=== PATIENT | male | born 1955 | race Caucasian/White ===

== ENCOUNTER 2024-11-16 16:57 | Emergency (ER) | payer OTHER, SELFPAY ==
[2024-11-16] VITALS (20 sets, daily range): BP systolic 122–168; BP diastolic 73–81; PULSE 64–92; TEMP 36.4; O2SAT 91–99; BMI 40.4
--- NOTE | 2024-11-16 17:09 | CT_ITS ---
The [address] [address] Patient Name: DENNIS HANEY MRN: [id number] date: 1955 Sex: M Assigned Patient Location: ER Current Patient Location: ER Accession/Order Number: [id number] Exam Date: 11/16/2024 17:15 Report Date: 11/16/2024 17:56 At the request of: XOCHILT HAGAN DO Procedure: CT stroke head/brain wo con CT BRAIN WITHOUT CONTRAST: CLINICAL HISTORY: r/o CVA, dysarthria, dysmetria COMPARISON: None TECHNIQUE: Contiguous axial unenhanced images were obtained through the brain. This CT exam was performed using one or more following dose reduction techniques: Automated exposure control, adjustment of the mA and/or kV according to patient size, or use of iterative reconstruction technique. FINDINGS: Central involutional changes. Remote right lentiform nucleus stroke with resultant encephalomalacia. There is hypoattenuation left frontal lobe extending to the left basal ganglia. Focal increased density left lentiform nucleus worrisome for hemorrhage. This measures 1.8 x 1.3 x 1.5 cm in size. Visualized intraorbital contents appear unremarkable. Visualized paranasal sinuses are clear. The surrounding soft tissues are normal. CT/CT stroke head/brain wo con IMPRESSION: LEFT BASAL GANGLIA HEMORRHAGE, ATTENUATION LIKELY MAY SUGGEST ACUTE SUBACUTE IN AGE. THERE IS HYPOATTENUATION INVOLVING THE LEFT BASAL GANGLIA IS PREDOMINANTLY INVOLVING LENTIFORM NUCLEUS NOTED WHICH MAY RAISE POSSIBILITY FOR A SUBACUTE STROKE WITH SECONDARY PETECHIAL CONVERSION CAUSING THE AFOREMENTIONED HEMORRHAGE.. MRI MAY BE BENEFICIAL. DISCUSSED WITH A PHYSICIAN OVER TELEPHONE 1725 HOURS 11/16/2024 Impression dictated by: Gary Bunn M.D. 11/16/2024 5:56 PM Dictation Location: [place] [address] Electronically authenticated by: [id number] Y Date: 11/16/2024 17:56
--- NOTE | 2024-11-16 17:09 | CT_ITS ---
[address] [address] Patient Name: DENNIS HANEY MRN: [id number] date: 1955 Sex: M Assigned Patient Location: ER Current Patient Location: .[facility] Accession/Order Number: [id number] Exam Date: 11/16/2024 17:24 Report Date: 11/16/2024 18:12 At the request of: XOCHILT HAGAN DO Procedure: CT angio neck CT ANGIOGRAPHY OF HEAD AND NECK WITH CONTRAST CLINICAL HISTORY: r/o CVA, dysarthria, dysmetria COMPARISON: None TECHNIQUE: CT angiogram images through the head and neck with coronal sagittal reformats. Evaluation degree of ICA narrowing was performed utilizing NASCET criteria. 3-D reconstructions of the cervical vasculature were performed.. This CT exam was performed using one or more following dose reduction techniques: Automated exposure control, adjustment of the mA and/or kV according to patient size, or use of iterative reconstruction technique. FINDINGS: FINDINGS: Bovine arch. Great vessels are patent. Carotid arteries patent. Vertebral arteries are patent. Intracranial ICAs are patent. ACAs and MCAs are patent. Vertebral arteries, basilar artery basilar tip, basilar bifurcation patent. Posterior cerebral arteries, superior cerebellar arteries and picas are patent. No aneurysm. No dural venous sinus thrombosis. Lung apices are clear. Degenerative changes of the cervical spine. CT/CT angio head IMPRESSION: Negative for large vessel occlusion Impression dictated by: Gary Bunn M.D. 11/16/2024 6:12 PM Dictation Location: [place] [address] Electronically authenticated by: [id number] Y Date: 11/16/2024 18:12
--- NOTE | 2024-11-16 17:09 | CT_ITS ---
[address] [address] Patient Name: DENNIS HANEY MRN: [id number] date: 1955 Sex: M Assigned Patient Location: ER Current Patient Location: .[facility] Accession/Order Number: [id number] Exam Date: 11/16/2024 17:24 Report Date: 11/16/2024 18:12 At the request of: XOCHILT HAGAN DO Procedure: CT angio neck CT ANGIOGRAPHY OF HEAD AND NECK WITH CONTRAST CLINICAL HISTORY: r/o CVA, dysarthria, dysmetria COMPARISON: None TECHNIQUE: CT angiogram images through the head and neck with coronal sagittal reformats. Evaluation degree of ICA narrowing was performed utilizing NASCET criteria. 3-D reconstructions of the cervical vasculature were performed.. This CT exam was performed using one or more following dose reduction techniques: Automated exposure control, adjustment of the mA and/or kV according to patient size, or use of iterative reconstruction technique. FINDINGS: FINDINGS: Bovine arch. Great vessels are patent. Carotid arteries patent. Vertebral arteries are patent. Intracranial ICAs are patent. ACAs and MCAs are patent. Vertebral arteries, basilar artery basilar tip, basilar bifurcation patent. Posterior cerebral arteries, superior cerebellar arteries and picas are patent. No aneurysm. No dural venous sinus thrombosis. Lung apices are clear. Degenerative changes of the cervical spine. CT/CT angio neck IMPRESSION: Negative for large vessel occlusion Impression dictated by: Gary Bunn M.D. 11/16/2024 6:12 PM Dictation Location: [place] [address] Electronically authenticated by: [id number] Y Date: 11/16/2024 18:12
--- NOTE | 2024-11-16 17:09 | XR_ITS ---
The [address] [address] Patient Name: DENNIS HANEY MRN: [id number] date: 1955 Sex: M Assigned Patient Location: ER Current Patient Location: ER Accession/Order Number: [id number] Exam Date: 11/16/2024 17:42 Report Date: 11/16/2024 18:06 At the request of: XOCHILT HAGAN DO Procedure: XR chest 1V PA CHEST: CLINICAL HISTORY: CP COMPARISON: None Unremarkable cardiomediastinal. Lungs clear. No effusion or pneumothorax. XR/XR chest 1V IMPRESSION: Negative acute pleural-parenchymal disease. Impression dictated by: Gary Bunn M.D. 11/16/2024 6:06 PM Dictation Location: [place] [address] Electronically authenticated by: [id number] Y Date: 11/16/2024 18:06
--- NOTE | 2024-11-16 17:10 | ECG_ITS ---
The [facility] Test Date: 2024-11-16 Pat Name: DENNIS HANEY Department: Room: - Gender: Male Head Of Business Development: : 1955 Requested By: [id number] Order Number: [id number] [place] MD: EDGAR RITCHIE M.D. Measurements Intervals [place] Rate: 91 P: 90 [place]: 172 QRS: 90 QRSD: 94 T: 231 QT: 322 QTc: 371 Interpretive Statements 1100 Sinus rhythm 4564 Twave abnormality, possible lateral ischemia 9150 abnormal ECG Compared to ECG 12/27/2019 10:00:08 Possible ischemia now present Electronically Signed On 11-16-2024 17:40:01 EDT by EDGAR RITCHIE M.D.
--- NOTE | 2024-11-16 17:26 | ED.GENADUL1 ---
HPI HPI - General Adult General Chief complaint: Fall Stated complaint: FALL Time Seen by Provider: 11/16/24 17:02 Source: patient Source information: EMS and patient. Mode of arrival: ambulance Limitations: other Limitations comment: speech slurred hx of strokes History of Present Illness HPI narrative: Patient is a 69-year-old male presenting to the emergency department via EMS after being found down in his house. According to EMS providers, the patient lives alone. He called EMS himself, and was found by providers wedged between the bed on top of a pile of his medications. The patient reportedly has a history of 3 prior strokes, but unknown what his residual deficits are. They are unsure of his last known well. EMS states that he was wobbly and had an uncoordinated gait when they tried to get him to walk. The patient mumbles when he speaks and is having a hard time providing a history. He does not seem to be in any pain and says no to all my review of system questions. He denies headache, neck pain, chest pain, shortness of breath, abdominal pain, nausea, vomiting, visual changes, numbness/tingling, weakness, or any other symptoms. Related Data Home Medications ?Medication ?Instructions ?Recorded ?Confirmed atorvastatin 10 mg tablet 10 mg PO .QD 11/16/24 11/16/24 clonazepam 0.5 mg tablet 0.5 mg PO BID PRN anxiety 11/16/24 11/16/24 felbamate 600 mg tablet 1,200 mg PO QID 11/16/24 11/16/24 meloxicam 7.5 mg tablet 7.5 mg PO .QD 11/16/24 11/16/24 zonisamide 100 mg capsule 100 mg PO Q12H 11/16/24 11/16/24 Allergies Allergy/AdvReac Type Severity Reaction Status Date / Time No Known Drug Allergies Allergy Verified 11/16/24 17:09 Review of Systems ROS Status of ROS 10 or more systems reviewed and unremarkable except as noted in history and below Exam Narrative Exam Narrative: CONSTITUTIONAL: In no acute distress, awake and alert, answering questions and following commands appropriately SKIN: Was warm and dry. He has impressions of pill bottles in the skin of his back. No pressure ulcers. EYES: Sclerae white. EARS, NOSE, THROAT: Dry mucous membranes. No tongue lacerations. RESPIRATORY: Clear to auscultation bilaterally, no wheezes, crackles, or stridor, no use of accessory muscles CARDIOVASCULAR: Normal rate and regular rhythm. There is no S3, S4, murmur, rub. 2+ radial pulses bilaterally. GASTROINTESTINAL: Abdomen soft, nontender, nondistended. No rebound tenderness or guarding. MUSCULOSKELETAL: No peripheral edema. No C-spine tenderness. NEUROLOGIC: NIHSS: 4 - Patient is alert and oriented to person place and time with severe dysarthria. Sensation: sensation to light touch is intact bilaterally in upper and lower extremities. Motor: Good muscle tone. Strength is 5/5 bilaterally in the upper and lower extremities. Cerebellar: Dysmetria with abnormal finger to nose testing. Gait testing deferred. Cranial Nerves: Pupils are round, reactive to light and accommodation. Extraocular movements are intact without ptosis. No nystagmus. Facial sensation intact bilaterally to light touch in the V1, V2, V3 distribution. Facial muscle strength is normal and equal bilaterally. Hearing is normal bilaterally. Palate and uvula elevate symmetrically. Shoulder shrug strong and equal bilaterally. Tongue protrudes midline and moves symmetrically. Constitutional Vital Signs, click to edit/add: Last Vital Signs Temp 97.5 F L 11/16/24 17:00 Pulse 67 11/16/24 18:40 Resp 10 L 11/16/24 18:40 BP 167/76 H 11/16/24 18:30 Pulse Ox 98 11/16/24 18:40 O2 Del Method Room Air 11/16/24 17:00 Course Vital Signs Vital signs: Vital Signs Temperature 97.5 F L 11/16/24 17:00 Pulse Rate 90 11/16/24 17:00 Respiratory Rate 20 11/16/24 17:00 Blood Pressure 122/80 11/16/24 17:00 Pulse Oximetry 98 11/16/24 17:00 Oxygen Delivery Method Room Air 11/16/24 17:00 Temperature 97.5 F L 11/16/24 17:00 Pulse Rate 67 11/16/24 18:40 Respiratory Rate 10 L 11/16/24 18:40 Blood Pressure 167/76 H 11/16/24 18:30 Pulse Oximetry 98 11/16/24 18:40 Oxygen Delivery Method Room Air 11/16/24 17:00 Medical Decision Making MDM Narrative Medical decision making narrative: Patient is a 69-year-old male presenting to the emergency department from home via EMS after being found down in his home. According to EMS providers, the patient was having slurred speech and an uncoordinated gait. He reportedly has a history of 3 prior CVAs with unknown residual deficits. The last known well is unknown. The patient has never been to this hospital before, there is no emergency contact. No family is at the bedside. POC glucose on arrival was within normal limits. His vital signs are within normal limits as well. He is afebrile and hemodynamically stable. NIHSS was calculated to be 4 for severe dysarthria and bilateral limb ataxia. To the best of our knowledge, he is not on anti-coagulation. Stroke pager was immediately activated for concerns of an acute CVA. Given his neurologic symptoms, I am concerned for possible posterior circulation stroke. There is no prior documentation in the EMR for review, and his symptoms may be chronic and related to his 3 prior strokes. Additionally, the patient was found down after an unknown period of time. Therefore, I did consider rhabdomyolysis. Other potential etiology include metabolic encephalopathy from underlying infection such as UTI, pneumonia, ACS, arrhythmia, uremia, or other electrolyte/metabolic derangement. IV was established and broad workup was obtained. He was given [address] bol[address] saline. [address] head independently reviewed/interpreted by myself and radiology demonstrated acute vs subacute left basal ganglia hemorrhagic CVA. CTA angio of the head/neck demonstrated no LVO. Reason for no thrombolytics: unknown last known well, hemorrhagic conversion After the STAT CT head was obtained, I discussed the patient with aviation boatswain's mate tele-stroke neurologist from Dr. Tena Cleaning. He reviewed the CT head and interpreted the images as a subacute ischemic stroke with hemorrhagic conversion. He has less suspicion for primary intraparenchymal hemorrhage and recommends keeping the patient within [facility]'s - no transfer required. He did not recommend thrombolytics or DAPT. Recommends MRI or repeat CT in 6 hours and SBP goal of < 160mmHg. 12 Lead EKG: Normal sinus rhythm at a rate of 91. Normal axis. No ST segment elevations. There are subtle ST segment depressions and T wave inversions in the lateral leads. QRS, WA, and QTc interval within normal limits. No prior EKG for comparison. Final impression: normal sinus rhythm with non-specific T wave abnormalities. No evidence of STEMI. Laboratory studies were overall unremarkable, no prior labs for comparison. Mild anemia and mild thrombocytopenia. No leukocytosis. Normal coagulation profile. No electrolyte derangements. He is uremic with a BUN of 46, and a normal creatinine. Mild transaminitis and mild elevated alk phos. No elevated ammonia. CPK normal. Troponin nonelevated. Negative alcohol level. Mild hyperglycemia. Chest x-ray independently reviewed/interpreted by myself demonstrated no acute cardiopulmonary process. I discussed the patient with on-call neurologist at [facility], Dr. Light, who accepted the transfer with no further recommendations at this time. I discussed the patient with hospitalist, Dr. Sozua, at [facility] who accepted the patient to his service. At the end of my shift, his neurologic exam remains unchanged with no worsening deficits. GCS 15. His blood pressure is 167/76, this should be repeated and treated if it remains persistently elevated over 160mmHg systolic. 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 DISPOSITION: Transferred to [facility] CONDITION: Serious Medical Records Medical records reviewed: Yes I reviewed the patient's medical records Lab Data Lab results reviewed: Yes I reviewed the patient's lab results Labs: Lab Results 11/16/24 11/16/24 Range/Units 17:25 17:40 WBC 5.8 (4.0-11.0) 10^3/uL RBC 4.06 L (4.70-6.10) 10^6/uL Hgb 13.2 L (14.0-18.0) g/dL Hct 37.2 L (42.0-54.0) % MCV 91.6 (80.0-94.0) fL MCH 32.5 (25.9-34.0) pg MCHC 35.5 H (29.9-35.2) g/dL RDW 13.2 (11.0-15.0) % Plt Count 128 L (150-450) 10^3/uL MPV 10.9 (9.5-13.5) fL Neut % (Auto) 80.0 H (43.0-75.0) % Lymph % (Auto) 12.7 L (20.5-60.0) % [place] % (Auto) 4.8 (1.7-12.0) % Eos % (Auto) 1.9 (0.9-7.0) % Baso % (Auto) 0.3 (0.2-2.0) % Neut # (Auto) 4.7 (1.4-6.5) 10^3/uL Lymph # (Auto) 0.7 L (1.2-3.8) 10^3/uL [place] # (Auto) 0.3 (0.3-0.8) 10^3/uL Eos # (Auto) 0.1 (0.0-0.7) 10^3/uL Baso # (Auto) 0.0 (0.0-0.1) 10^3/uL Abs Immat Gran (auto) 0.02 (0.00-0.03) 10^3/uL Imm/Tot Granulo (auto) 0.3 (0.0-0.5) % PT 11.1 (9.0-11.6) sec INR 1.05 APTT 27.7 (22.3-36.2) sec Sodium 143 (136-145) mmol/L Potassium 3.9 (3.5-5.1) mmol/L Chloride 104 (98-107) mmol/L Carbon Dioxide 28.1 (21.0-32.0) mmol/L Anion Gap 14.8 BUN 46.0 H (7.0-18.0) mg/dL Creatinine 1.10 (0.70-1.30) mg/dL Est GFR ( Amer) >60 (>=60 mL/min/1.73m^2) Est GFR (Non-Af Amer) >60 (>=60 mL/min/1.73m^2) BUN/Creatinine Ratio 41.8 Glucose 182 H (74-106) mg/dL Lactate 1.5 (0.4-2.0) mmol/L Calcium 9.5 (8.5-10.1) mg/dL Total Bilirubin 0.3 (0.2-1.0) mg/dL AST 48 H (15-37) U/L ALT 38 (16-63) U/L Alkaline Phosphatase 175 H (46-116) U/L Ammonia 21 (11-32) umol/L Total Creatine Kinase 187 (39-308) U/L Troponin I High Sens 13.3 (4.0-76.1) pg/mL Total Protein 8.0 (6.4-8.2) g/dL Albumin 4.2 (3.4-5.0) g/dL Globulin 3.8 g/dL Albumin/Globulin Ratio 1.1 Ethanol Quant <3 mg/dL POC Glucose 172 H (74-106) mg/dL Imaging Data CT scan - head: Attestation: I personally reviewed and interpreted this imaging study as follows: Radiologist's impression: ITS Impressions Brain CT 11/16/24 17:09 IMPRESSION: LEFT BASAL GANGLIA HEMORRHAGE, ATTENUATION LIKELY MAY SUGGEST ACUTE SUBACUTE IN AGE. THERE IS HYPOATTENUATION INVOLVING THE LEFT BASAL GANGLIA IS PREDOMINANTLY INVOLVING LENTIFORM NUCLEUS NOTED WHICH MAY RAISE POSSIBILITY FOR A SUBACUTE STROKE WITH SECONDARY PETECHIAL CONVERSION CAUSING THE AFOREMENTIONED HEMORRHAGE.. MRI MAY BE BENEFICIAL. DISCUSSED WITH A PHYSICIAN OVER TELEPHONE 1725 HOURS 11/16/2024 Impression dictated by: Gary Bunn M.D. 11/16/2024 5:56 PM Dictation Location: [facility] Electronically authenticated by: [id number] Y Date: 11/16/2024 17:56 Chest X-Ray 11/16/24 17:09 IMPRESSION: Negative acute pleural-parenchymal disease. Impression dictated by: Gary Bunn M.D. 11/16/2024 6:06 PM Dictation Location: [facility] Electronically authenticated by: [id number] Y Date: 11/16/2024 18:06 Head CTA 11/16/24 17:09 IMPRESSION: Negative for large vessel occlusion Impression dictated by: Gary Bunn M.D. 11/16/2024 6:12 PM Dictation Location: [facility] Electronically authenticated by: [id number] Y Date: 11/16/2024 18:12 Neck CTA 11/16/24 17:09 IMPRESSION: Negative for large vessel occlusion Impression dictated by: Gary Bunn M.D. 11/16/2024 6:12 PM Dictation Location: [facility] Electronically authenticated by: [id number] Y Date: 11/16/2024 18:12 ECG Data Attestation: I personally reviewed and interpreted this ECG as follows: Critical Care Time Critical Care Time Critical Care Time: Yes Total Critical Care Time: 40 Attestation: Due to a high probability of clinically significant, life threatening deterioration, the patient required my highest level of preparedness to intervene emergently and I personally spent this critical care time directly and personally managing the patient. This critical care time included obtaining a history; examining the patient; pulse oximetry; ordering and review of studies; arranging urgent treatment with development of a management plan; evaluation of patient's response to treatment; frequent reassessment; and, discussions with other providers. This critical care time was performed to assess and manage the high probability of imminent, life-threatening deterioration that could result in multi-organ failure. It was exclusive of separately billable procedures and treating other patients and teaching time. Discharge Plan Discharge Chief Complaint: Fall Clinical Impression: Basal ganglia stroke Patient Disposition: [facility] Time of Disposition Decision: 19:02 Discharge Location: [facility] Condition: Serious Mode of Transportation: EMS
[2024-11-16] MEDS: 0.9 % SODIUM CHLORIDE 1,000 ML 1000 ML IV (17:41)
[2024-11-16 17:57] LABS: Hematocrit 37.2 % (42.0-54.0); Hemoglobin 13.2 g/dL (14.0-18.0); Immature Granulocytes Abs Auto 0.02 10^3/uL (0.00-0.03); Immature Granulocytes Pct Auto 0.3 % (0.0-0.5); Lymphocytes Absolute Auto 0.7 10^3/uL (1.2-3.8); Mean Corpuscular HGB Conc 35.5 g/dL (29.9-35.2); Mean Corpuscular Hemoglobin 32.5 pg (25.9-34.0); Mean Corpuscular Volume 91.6 fL (80.0-94.0); Platelet Count 128 10^3/uL (150-450); Red Blood Count 4.06 10^6/uL (4.70-6.10); White Blood Count 5.8 10^3/uL (4.0-11.0)
[2024-11-16 17:58] LABS: Ammonia 21 umol/L (11-32)
[2024-11-16 18:01] LABS: INR 1.05; Partial Thromboplastin Time 27.7 sec (22.3-36.2); Prothrombin Time 11.1 sec (9.0-11.6)
[2024-11-16 18:02] LABS: Creatine Kinase 187 U/L (39-308)
[2024-11-16 18:04] LABS: Alanine Aminotransferase 38 U/L (16-63); Albumin Globulin Ratio 1.1; Albumin Level 4.2 g/dL (3.4-5.0); Alkaline Phosphatase 175 U/L (46-116); Anion Gap 14.8; Aspartate Amino Transferase 48 U/L (15-37); Blood Urea Nitrogen 46.0 mg/dL (7.0-18.0); Calcium 9.5 mg/dL (8.5-10.1); Carbon Dioxide 28.1 mmol/L (21.0-32.0); Chloride 104 mmol/L (98-107); Estimated GFR (African America >60 (>=60 mL/min/1.73m^2); Estimated GFR (Non-African Ame >60 (>=60 mL/min/1.73m^2); Globulin 3.8 g/dL; Glucose 182 mg/dL (74-106); Potassium 3.9 mmol/L (3.5-5.1); Sodium 143 mmol/L (136-145); Total Protein 8.0 g/dL (6.4-8.2)
[2024-11-16 18:10] LABS: Lactate/Lactic Acid 1.5 mmol/L (0.4-2.0)
--- NOTE | 2024-11-16 18:12 | PC.NURSE ---
0651 Talking with stroke nurse for tele stroke. took phone on phone with neurologist.
--- NOTE | 2024-11-16 18:16 | PC.NURSE ---
Patient has no family or contact information. HX of 3strokes in past. Unsure of deficits from previous stroke. Difficult to under stand speech is slurred. Left side uncoordinated when doing finger to nose. Follows commands when asked.
--- NOTE | 2024-11-16 19:10 | PC.NURSE ---
i walked into this patient' room to find this patient awake and alert sitting upright on the bed. i introduced myself to this patient and i told him that he was accepted to [facility] but now waiting a room number. once we get that room number at [facility] then we will call for transportation for to take you to [facility] this patient voices no concerns or needs and shows no signs of distress
--- NOTE | 2024-11-16 19:35 | PC.NURSE ---
patient sitting upright on the bed resting with his eyes closed
--- NOTE | 2024-11-16 20:00 | PC.NURSE ---
this patient awake and alert sitting upright on the bed, i informed this patient still don't have a room number at [facility] yet. this patient voices ok this patient voices no other concerns, needs and shows no signs of distress
--- NOTE | 2024-11-16 21:24 | PC.NURSE ---
this patient awake and alert sitting upright on the bed. i informed this patient that you have a room now at [facility] and eat for transportation will in 2 hours. but we are call around to see if we can find someone that would be able to come sooner. this patient said ok
--- NOTE | 2024-11-16 22:02 | PC.NURSE ---
this patient asked of i could call his sister Barbara([phone]), who lives in [place]
--- NOTE | 2024-11-16 22:10 | PC.NURSE ---
i informed this patient that the phone number given [phone] your sister Barbara, it rang busy. I will continue to try this number,this patient said she will call back most likely, once she see the phone number
--- NOTE | 2024-11-16 22:35 | PC.NURSE ---
this patient sitting upright on the bed awake and alert
--- NOTE | 2024-11-16 23:18 | PC.NURSE ---
ii called patient report to [facility] [phone] and spoke with Penny OGDEN
--- NOTE | 2024-11-17 16:15 | SWNOTE1 ---
JIMI received a call from Estelita at [facility] and she is the pillowcase turner. She did ask if pt was at the [facility]. JIMI did advise that pt was here in our ED ON 11/16/24 and he was transferred to [facility]. JIMI provided for continuity of care.
== END 2024-11-16 23:17 | disposition short-term general hospital (02) ==
PROVIDERS: Emergency Provider Student in an Organized Health Care Education/Training Program
DX: I62.9 Nontraumatic intracranial hemorrhage, unspecified (principal); Z86.73 Personal history of transient ischemic attack (TIA), and cerebral infarction without residual deficits; R73.9 Hyperglycemia, unspecified
CPT/HCPCS: 36415; 70450; 70496; 70498; 71045; 80053; 80320; 81001; 82140; 82550; 82948; 83605; 84484; 85025; 85610; 85730; 93005; 99285; Q9967

== ENCOUNTER 2025-01-02 18:15 | Inpatient (IN) | payer OTHER, SELFPAY ==
--- OUTSIDE RECORDS SUMMARY | 2024-12-28 09:00 | XMS_ITS | Encounter Summary ---
Author Organization [facility] Address [address] [facility] [address] [place] [address] Care Team Providers Care Retail Advertising Account Executive Name Role Phone Shala Reynolds MD Primary Care Provider [phone] Reason for Referral * Consultation (Routine) - AuthorizedSpecialtyDiagnoses / ProceduresReferred By ContactReferred To ContactOrthopaedic Surgery Diagnoses Trochanteric bursitis of left hip Sciatica of left side Anthony Sanchez MD [address] [place] [address] Phone: tel: fax: Darin Ashraf MD [facility] Referrals ONLY fax: Referral IDStatusReasonStart DateExpiration DateVisits RequestedVisits [id number] Specialty Services Required / Reason for Visit * ReasonCommentsstrokeMemory Loss Encounter Details DateTypeDepartmentCare Team (Latest Contact Info)Wwbcywwxewe96/20/2025 9:00 AM ESTOffice Visit [facility] [address] [phone] Antohny Sanchez MD [address] [place] [address] Trochanteric bursitis of left hip (Primary Dx); Sciatica of left side Social History Tobacco UseTypesPacks/DayYears UsedDateSmoking Tobacco: NeverSmokeless Tobacco: NeverAlcohol UseStandard Drinks/WeekCommentsNot Currently0 (1 standard drink = 0.6 oz pure alcohol)PHQ-2AnswerDate RecordedPatient Health Questionnaire-2 Score Sex and Gender InformationValueDate RecordedSex Assigned at [facility] 07/18/2022 9:11 AM EDTLegal IuzOqau5404/22/2022 7:26 PM EDTGender IdentityMale 07/18/2022 9:11 AM EDTSexual OrientationNot on filedocumented as of this encounter Last Filed Vital Signs Vital SignReadingTime TakenCommentsBlood Pkofqhnu015/6811 8:58 AM EST Pulse--Temperature--Respiratory Rate--Oxygen Saturation--Inhaled Oxygen Concentration--Ldacsy40.5 kg (124 lb 9.6 oz)12/28/2024 8:58 AM MFPUjlqvd438.9 cm (6')12/28/2024 8:58 AM ESTBody Mass Index16.9102/28/2024 8:58 AM ESTdocumented in this encounter Progress Notes * Anthony Sanchez MD - 12/28/2024 9:00 AM EST Images from the original note were not included. Subjective Moose Plascencia is a 69 y.o. male who presents for stroke and Memory Loss, and left hip pain. History of Present Illness The patient presents for evaluation of stroke, hip pain, and seizures. He experienced a stroke at the end of 11/2024, characterized by an inability to rise from the floornext to his bed, although he could text his neighbor for assistance. He was subsequently admitted to the [facility]. An MRI scan revealed a small bleed in the basal ganglia, but no residual effects from the stroke were observed. He reports no loss of strength since his hospital discharge. Prior to the stroke, he had been experiencing difficulty with mobility due to hip issues. X-rays ofthe hip and pelvis showed ischemic changes. During his stay at [facility], surgical intervention was advised against due to his recent stroke and overall frailty. He has been struggling with physicaltherapy due to his hip condition. He received a cortisone injection at [facility], which provided some relief. He has been walking with a noticeable limp due to his hip condition. He missed an appointment in 2022 due to inclement weather. He is currently undergoing therapy and is able to walk long distances without significant pain. He is considering the use of a scooter for mobility. He had a seizure after missing two doses of Keppra during a rehab transfer, which led to another seizure and subsequent hospitalization at [facility]. His medication regimen was adjusted by Dr. Garcia, including an increase in Zonegran dosage from 100 mg to 150 mg. He has been seizure-free since these adjustments. MEDICATIONS CURRENT MEDS: Zonegran 100 mg, 150 mg Felbamate Antidepressant PREVIOUS MEDS: Keppra Reason for Discontinuation: Seizures due to missed doses Review of Systems Constitutional: Negative for chills, diaphoresis, fatigue and fever. HENT: Negative for ear pain, tinnitus and trouble swallowing. Eyes: Negative for photophobia and visual disturbance. Respiratory: Negative for cough and shortness of breath. Cardiovascular: Negative for palpitations and leg swelling. Gastrointestinal: Negative for abdominal pain and nausea. Genitourinary: Negative for difficulty urinating and urgency. Musculoskeletal: Negative for arthralgias, back pain, myalgias, neck pain and neck stiffness. Neurological: Negative for tremors, weakness, light-headedness and numbness. Psychiatric/Behavioral: Negative for agitation, confusion and suicidal ideas. Objective Blood pressure 134/68, height 6', weight 124 lb 9.6 oz. Physical Exam Motor Examination Strength: Hand strength is normal. Lower limb strength is normal. Gait and Station Gait: Walking pattern is crooked due to hip pain. Musculoskeletal: Pain in the hip. Results Imaging - MRI of the brain: Small bleed in the basal ganglia - X-rays of the hip and pelvis: Ischemic changes Assessment & Plan 1. Cerebrovascular accident (CVA). He experienced a stroke at the end of November and was taken to [facility]. An MRI confirmed a smallbrain bleed in the basal ganglia. He has not shown any residual weakness from the stroke. He is advised to continue his current medication regimen, including the antidepressant, at the same dosage. 2. Hip pain. He has been experiencing hip pain, which has affected his mobility and therapy participation. A cortisone shot previously administered at [facility] provided some relief. A referral to Dr. Guzman fororthopedic evaluation and potential treatment options, including injections, will be made. 3. Seizures. He had a seizure due to missed doses of Keppra during a rehab transfer. His current medication regimen includes Zonegran 100 mg and 150 mg counts, and felbamate. The plan is to continue with the current doses of Zonegran and felbamate. Keppra will be discontinued as it has more side effects compared to Zonegran. Follow-up The patient will follow up in 4 weeks. This clinical note was created utilizing [employer] documentation system. All information has beenthoroughly reviewed, corrected as necessary, and authenticated by the provider to ensure accuracy and completeness. On occasion, [employer] documentation system erroneously drops words or replaces aspoken word with a similar sounding word. Please notify with any questions or concerns regarding this clinical note. documented in this encounter Plan of Treatment DateTypeDepartmentCare Team (Latest Contact Info)Drqjankwjbq66/19/2025 10:20 AM ESTOffice Visit [facility] [address] [facility] [address] [place] [address] Anthony Sanchez MD [address] [facility] [address] [address] NameTypePriorityAssociated DiagnosesOrder ScheduleAmbulatory referral to Orthopaedic SurgeryOutpatient ReferralRoutine Trochanteric bursitis of left hip Sciatica of left side Expected: 12/28/2024 (Approximate), Expires: 06/27/2025documented as of this encounter Visit Diagnoses Diagnosis Trochanteric bursitis of left hip- Primary Sciatica of left side documented in this encounter Additional Health Concerns AssessmentNoted TimePHQ-9 Depression Total Score: 10:00 AM EST documented as of this encounter Care Teams Team MemberRelationshipSpecialtyStart DateEnd Date Shala Reynolds MD [address] [place] [address] PCP - GeneralFamily Medicine06/16/22documented as of this encounter
[2025-01-02] VITALS (29 sets, daily range): BP systolic 134–180; BP diastolic 63–93; PULSE 68–112; TEMP 36.1–36.2; O2SAT 92–99; BMI 23.7; BMI 16.0
--- NOTE | 2025-01-02 18:41 | CT_ITS ---
The [address] [address] Patient Name: DENNIS HANEY MRN: [id number] date: 1955 Sex: M Assigned Patient Location: ED.MAIN Current Patient Location: ED.MAIN Accession/Order Number: [id number] Exam Date: 01/02/2025 19:22 Report Date: 01/02/2025 20:09 At the request of: ELAINA VELAZQUEZ MD Procedure: CT head/brain wo con CT BRAIN WITHOUT CONTRAST: CLINICAL HISTORY: Altered mental status COMPARISON: 11/16/2024 TECHNIQUE: Contiguous axial unenhanced images were obtained through the brain. This CT exam was performed using one or more following dose reduction techniques: Automated exposure control, adjustment of the mA and/or kV according to patient size, or use of iterative reconstruction technique. FINDINGS: There is no evidence of midline shift, intra or extra-axial fluid collection, hemorrhage or CT evidence of acute large vascular distribution stroke. Remote lacunar strokes both basal ganglia regions Visualized intraorbital contents appear unremarkable. Visualized paranasal sinuses are clear. The surrounding soft tissues are normal. CT/CT head/brain wo con IMPRESSION: NO ACUTE INTRACRANIAL ABNORMALITY. Impression dictated by: Gary Bunn M.D. 01/02/2025 8:09 PM Dictation Location: [place] [address] Electronically authenticated by: [id number] Y Date: 01/02/2025 20:09
--- NOTE | 2025-01-02 18:41 | XR_ITS ---
The [address] [address] Patient Name: DENNIS HANEY MRN: [id number] date: 1955 Sex: M Assigned Patient Location: ER Current Patient Location: ED.MAIN Accession/Order Number: [id number] Exam Date: 01/02/2025 19:22 Report Date: 01/02/2025 20:05 At the request of: ELAINA VELAZQUEZ MD Procedure: XR chest 1V PA CHEST: CLINICAL HISTORY: weak COMPARISON: 11/16/2024 Unremarkable cardiomediastinal. New interstitial thickening both lung base. . Otherwise, the Lungs clear. No effusion or pneumothorax. XR/XR chest 1V IMPRESSION: New interstitial thickening may raise possibility for interstitial pulmonary edema. Otherwise, Negative acute pleural-parenchymal disease. Impression dictated by: Gary Bunn M.D. 01/02/2025 8:05 PM Dictation Location: [place] [address] Electronically authenticated by: [id number] Y Date: 01/02/2025 20:05
--- NOTE | 2025-01-02 18:41 | ECG_ITS ---
The [place] Test Date: 2025-01-02 Pat Name: DENNIS HANEY Department: Room: - Gender: Male Train Control Electronic Technician: : 1955 Requested By: [id number] Order Number: [id number] Reading MD: EDGAR RITCHIE M.D. Measurements Intervals [place] Rate: 99 P: 106 AR: 162 QRS: 149 QRSD: 86 T: 106 QT: 318 QTc: 374 Interpretive Statements 1100 Sinus rhythm 5120 Possible right ventricular hypertrophy 0101 Possible arm leads reversed, check lead requested 9130 borderline ECG Compared to ECG 11/16/2024 17:01:55 Possible ischemia no longer present Electronically Signed On 01-02-2025 22:11:55 EST by EDGAR RITCHIE M.D.
--- NOTE | 2025-01-02 18:43 | ED.GENADUL1 ---
HPI HPI - General Adult General Stated complaint: ALTERED MENTAL STATUS Time Seen by Provider: 01/02/25 18:32 Source: other Source information: EMS Mode of arrival: ambulance Limitations: altered mental status History of Present Illness HPI narrative: 69-year-old male presents with his sister for not acting himself. He recently had a stroke and has been in and out of the hospital and in and out of [facility] for the last month or 2. He has been home for 2 days and lives in his own apartment by himself. He is sister went to check on him and she found him to be less alert and active as typical. The patient denies that he had a seizure today. His sister explains that he has not been taking his medications. She found pill dispensers that were on open and then there were pills spilled on the floor and in drawers. She cannot determine what he did take and what he did not take. He is unable to provide that sort of history. Related Data Home Medications ?Medication ?Instructions ?Recorded ?Confirmed atorvastatin 10 mg tablet 10 mg PO .QD 11/16/24 11/16/24 clonazepam 0.5 mg tablet 0.5 mg PO BID PRN anxiety 11/16/24 11/16/24 felbamate 600 mg tablet 1,200 mg PO QID 11/16/24 11/16/24 meloxicam 7.5 mg tablet 7.5 mg PO .QD 11/16/24 11/16/24 zonisamide 100 mg capsule 100 mg PO Q12H 11/16/24 11/16/24 Allergies Allergy/AdvReac Type Severity Reaction Status Date / Time No Known Drug Allergies Allergy Verified 01/02/25 18:36 Review of Systems ROS Narrative Not obtainable, altered mental status Exam Narrative Exam Narrative: Nurses note and vital signs reviewed General:The patient appears in no acute respiratory distress. He appears to prefer to keep his eyes closed but will open them when he is spoken to. Skin:Warm, dry, no pallor noted.There is no rash noted. Head:Normocephalic, atraumatic Eye: Normal conjunctiva, no drainage, EOMI. PERRL Ears, Nose, Mouth, and Throat: oral mucosa is moist. Nares patent. Cardiovascular:Regular Rate and Rhythm Respiratory:Patient is in no distress, no accessory muscle use, lungs are clear to auscultation, no wheezing, rales or rhonchi Back:non-tender GI: Soft and nontender Musculoskeletal: The patient has no evidence of calf tenderness, no pitting edema, symmetrical pulses noted bilaterally Neurological: Drowsy. He knows his name and where he is and the year. Psychiatric:Cooperative Constitutional Vital Signs, click to edit/add: Last Vital Signs Temp 97.2 F L 01/02/25 18:23 Pulse 100 H 01/02/25 18:23 Resp 16 01/02/25 18:23 BP 164/81 H 01/02/25 18:23 Pulse Ox 98 01/02/25 18:23 O2 Del Method Room Air 01/02/25 18:23 Course Vital Signs Vital signs: Vital Signs Temperature 97.2 F L 01/02/25 18:23 Pulse Rate 100 H 01/02/25 18:23 Respiratory Rate 16 01/02/25 18:23 Blood Pressure 164/81 H 01/02/25 18:23 Pulse Oximetry 98 01/02/25 18:23 Oxygen Delivery Method Room Air 01/02/25 18:23 Temperature 97.2 F L 01/02/25 18:23 Pulse Rate 100 H 01/02/25 18:23 Respiratory Rate 16 01/02/25 18:23 Blood Pressure 164/81 H 01/02/25 18:23 Pulse Oximetry 98 01/02/25 18:23 Oxygen Delivery Method Room Air 01/02/25 18:23 Medical Decision Making MDM Narrative Medical decision making narrative: Tests are ordered and the patient is signed out to Dr. Alberto at change of shift. Discharge Plan Discharge Patient Disposition: Still a Patient
--- OUTSIDE RECORDS SUMMARY | 2025-01-02 19:24 | XMS_ITS | Encounter Summary ---
Author Organization [facility] Address [address] [place] [address] Care Team Providers Care Edi Consultant Name Role Phone Shala Reynolds MD Primary Care Provider [phone] Encounter Details DateTypeDepartmentCare Team (Latest Contact Info)Zzkzufizmrk57/20/2025Travel Social History Tobacco UseTypesPacks/DayYears UsedDateSmoking Tobacco: NeverSmokeless Tobacco: NeverAlcohol UseStandard Drinks/WeekCommentsNot Currently0 (1 standard drink = 0.6 oz pure alcohol)PHQ-2AnswerDate RecordedPatient Health Questionnaire-2 Score Sex and Gender InformationValueDate RecordedSex Assigned at BirthMale 07/18/2022 9:11 AM EDTLegal NpoLxqp7104/22/2022 7:26 PM EDTGender IdentityMale 07/18/2022 9:11 AM EDTSexual OrientationNot on filedocumented as of this encounter Plan of Treatment DateTypeDepartmentCare Team (Latest Contact Info)Ouekhvrzfgg17/19/2025 10:20 AM ESTOffice Visit [facility] [address] [facility] [address] [place] [address] Anthony Sanchez MD [address] [facility] [address] [place] [address] documented as of this encounter Visit Diagnoses Not on filedocumented in this encounter Additional Health Concerns AssessmentNoted TimePHQ-9 Depression Total Score: 10:00 AM EST documented as of this encounter Care Teams Team MemberRelationshipSpecialtyStart DateEnd Date Shala Reynolds MD [address] [place] [address] PCP - GeneralFamily Medicine06/16/22documented as of this encounter
--- OUTSIDE RECORDS SUMMARY | 2025-01-02 19:24 | XMS_ITS | Encounter Summary ---
Author Organization [facility] Address [address] [place] [address] Care Team Providers Care Gas Meter Repairer Name Role Phone Shala Reynolds MD Primary Care Provider Encounter Details DateTypeDepartmentCare Team (Latest Contact Info)Ydasxqjccow15/21/2025Telephone [facility] [address] [place] [address] Shala Reynolds MD [address] [place] [address] Social History Tobacco UseTypesPacks/DayYears UsedDateSmoking Tobacco: NeverSmokeless Tobacco: NeverAlcohol UseStandard Drinks/WeekCommentsNot Currently0 (1 standard drink = 0.6 oz pure alcohol)PHQ-2AnswerDate RecordedPatient Health Questionnaire-2 Score Sex and Gender InformationValueDate RecordedSex Assigned at BirthMale 07/18/2022 9:11 AM EDTLegal TcvIzka0404/22/2022 7:26 PM EDTGender IdentityMale 07/18/2022 9:11 AM EDTSexual OrientationNot on filedocumented as of this encounter Miscellaneous Notes * Telephone Encounter - Marta Pratt - 12/29/2024 3:[address] Reynolds will follow for homecare documented in this encounter Plan of Treatment DateTypeDepartmentCare Team (Latest Contact Info)Rrhjbqwqzba23/19/2025 10:20 AM ESTOffice Visit [facility] [address] [place] [address] Anthony Sanchez MD [address] [facility] [address] [place], [place] [id number] documented as of this encounter Visit Diagnoses Not on filedocumented in this encounter Additional Health Concerns AssessmentNoted TimePHQ-9 Depression Total Score: 10:00 AM EST documented as of this encounter Care Teams Team MemberRelationshipSpecialtyStart DateEnd Date Shala Reynolds MD [address] [place] [address] PCP - GeneralFamily Medicine06/16/22documented as of this encounter
--- OUTSIDE RECORDS SUMMARY | 2025-01-02 19:24 | XMS_ITS | Clinical Summary ---
Author Organization [facility] Healthcare Address [address] [place] [address] Care Team Providers Care Segmental Paver Installer Name Role Phone Shala Reynolds MD Primary Care Provider [phone] Allergies No known active allergies Medications MedicationSigDispense QuantityRefillsLast FilledStart DateEnd DateStatus aspirin 81 MG chewable tablet 1 (one) time each day at the same timeActive omeprazole (PriLOSEC) [address] capsule 3Active amLODIPine (Norvasc) 5 MG tablet Indications:Essential hypertensionTAKE 1 TABLET DAILY 90 tablet 4Active atorvastatin (Lipitor) 10 MG tablet Indications:Mixed hyperlipidemiaTake 1 tablet (10 mg) by mouth Daily 90 tablet 5Active zonisamide (Zonegran) 100 MG capsule Indications:Seizure disorder (HCC)Take 1 capsule (100 mg) by mouth in the morning and 1 capsule (100 mg) before bedtime. 180 capsule 5Active felbamate (Felbatol) 600 MG tablet Indications:Localization-related (focal) (partial) symptomatic epilepsy and epileptic syndromes with simple partial seizures, intractable, without status epilepticus (HCC)TAKE 2 TABLETS IN THE MORNING, 2 TABLETS AT NOON, 2 TABLETS IN THE EVENING AND 2 TABLETS BEFORE BEDTIME 720 tablet 5Active clonazePAM (KlonoPIN) 0.5 MG tablet Indications:Localization-related (focal) (partial) symptomatic epilepsy and epileptic syndromes with simple partial seizures, intractable, without status epilepticus (HCC)TAKE 1 TABLET BY MOUTH TWICE DAILY NEEDED FOR ANXIETY 60 tablet 5Active diclofenac sodium 1 % gel Four times daily5Active Docusate Sodium (DSS) 100 MG capsule Twice daily as needed for Sfokzovocsdu68/03/2025Active magnesium hydroxide (Milk of Magnesia) 400 MG/5ML suspension Take by mouth5Active meloxicam (Mobic) 7.5 MG tablet 5Active oxyCODONE (Roxicodone) 5 MG immediate release tablet Three times daily as needed for Severe Pain5Active sennosides (Senokot) 8.6 MG tablet DAILY@12 as needed for If no BM in 2 days12/11/2024tive traZODone (Desyrel) 50 MG tablet Daily at afcywei8012/11/2024tive tamsulosin (Flomax) 0.4 MG 24 hr capsule Daily12/11/2024tive acetaminophen (Tylenol) 500 MG tablet Three times daily12/11/2024tive zonisamide (Zonegran) 50 MG capsule Take 50 mg by mouth 3 capsules by mouth at bed (total of 150 mg)Active clonazePAM (KlonoPIN) 0.5 MG tablet Indications:Localization-related (focal) (partial) symptomatic epilepsy and epileptic syndromes with simple partial seizures, intractable, without status epilepticus (HCC)TAKE 1 TABLET BY MOUTH TWICE DAILY NEEDED FOR ANXIETY 60 tablet 51Discontinued Active Problems ProblemNoted DateDiagnosed DateAge-related physical ayemkiah94/20/2025 Generalized bpuuenlw22/20/6502Jzetyrq51/20/2025ardiac enzymes elevated 12/28/2024 Overview (12/28/2024): Problem List clean-up per request of Phys. EHR Cmte Cognitive communication icmmmgu8412/28/2024Encounter for assessment of decision- making pcjoisef59/20/2025Encounter for other general faxfvxxswjc84/20/2025 Headache, ozxfsnucjkw49/20/4542Pvabesp14/20/2025Hemiparesis affecting left side as late effect of cfdull1512/28/2024 Overview (12/28/2024): Problem List clean-up per request of Phys. EHR Cmte Nontraumatic acute hemorrhage of basal jtfyjul3912/28/2024Other reduced mobility 12/28/2024Impaired mobility and activities of daily qruepa2612/28/2024Other specified health efyfvv5012/28/2024Pain15Acquired absence of organ 12/12/2024Senile /04/2025erebral bvmdapm2112/12/2024 Overview (12/28/2024): Problem List clean-up per request of Phys. EHR Cmte Cognitive communication jyulzvkb54/04/2025Disability affecting daily living 12/12/20249356Yopsyhrg27/04/2025Postoperative state12/12/2024llergic rhinitis 08/12/2022ysphagia as late effect of cpotcp8208/12/2022Essential hypertension 08/12/2022History of hemorrhagic stroke with residual krmkaebdxog14/05/2023 Localization-related (focal) (partial) symptomatic epilepsy and epileptic syndromes with simple partial seizures, intractable, without status epilepticus 08/12/2022Lumbar byhwhnfqldsnl07/05/2023Mixed xjhtnnpqugdstr32/05/2023Sciatica 08/12/2022Seizure qkufqvle30/05/2023Skin sensation prophskuhbz08/05/2023Stroke 08/12/20220978Lkcjpzoafcnjaicc62/05/2023Trochanteric bursitis of left hip08/12/2022 History of kodvdl8906/10/2022 Encounters DateTypeDepartmentCare ZegjDamvoillhbf16/21/2025Telephone [facility] Medicine [address] [place] [address] Shala Reynolds MD 12/28/2024 9:00 AM ESTOffice Visit [facility] [address] [address] Anthony Sanchez MD Trochanteric bursitis of left hip (Primary Dx); Sciatica of left side12/28/2024amboo flowsheet [facility] [address] [place] [address] Anthony Sanchez MD 12/28/20249100Xlfhsu85/05/2025linisync Result Encounter [facility] External Department Unsolicited Provider, Generic External Data 12/13/2024Telephone [facility] [address] [place] [address] Anthony Sanchez MD 12/05/2024Refill [facility] [address] [place] [address] Anthony Sanchez MD Localization-related (focal) (partial) symptomatic epilepsy and epileptic syndromes with simple partial seizures, intractable, without status epilepticus (HCC)from Last 3 Months Immunizations ImmunizationAdministration DatesNext DueInfluenza, High Dose Seasonal, Preservative Free12/15/2023,12/18/2019Influenza, High-dose Seasonal, Quadrivalent, Preservative Free12/09/2021,12/18/2020Influenza, injectable, ldyxbooirxlz40/07/2019Pfizer Purple Cap SARS-CoV-2 Bfqbiqefukj24/02/2021, 06/14/2020,1Pneumococcal Conjugate PCV 13102/16/2019Pneumococcal Polysaccharide MANT520702/16/2019Td (adult), 5 Lf tetanus toxoid, preservative free, bkyotfoa97/29/2017 Family History Medical HistoryRelationNameCommentsHeart diseaseFatherLung cancerMotherRelation NameStatusCommentsBrother2 brothersFatherDeceasedMotherDeceasedSister2 sisters Social History Tobacco UseTypesPacks/DayYears UsedDateSmoking Tobacco: NeverSmokeless Tobacco: Never Tobacco Cessation:Counseling Given: Not Answered Alcohol UseStandard Drinks/WeekCommentsNot Currently0 (1 standard drink = 0.6 oz pure alcohol)PHQ-2AnswerDate RecordedPatient Health Questionnaire-2 Score0 11/09/2022Sex and Gender InformationValueDate RecordedSex Assigned at BirthMale 07/18/2022 9:11 AM EDTLegal SyjWwor0404/22/2022 7:26 PM EDTGender IdentityMale 07/18/2022 9:11 AM EDTSexual OrientationNot on file Last Filed Vital Signs Vital SignReadingTime TakenCommentsBlood Vjeowbrp065/6812/28/2024 8:58 AM EST Pabvz28934/06/2024 10:23 AM ESTTemperature--Respiratory Rate--Oxygen Saturation 97%12/15/2023 10:23 AM ESTInhaled Oxygen Concentration--Olfmkg90.5 kg (124 lb 9.6 oz)12/28/2024 8:58 AM KRRSawwgq501.9 cm (6')12/28/2024 8:58 AM ESTBody Mass Index16.9102/28/2024 8:58 AM EST Plan of Treatment DateTypeDepartmentCare Team (Latest Contact Info)Ucqvdyiquhd61/19/2025 10:20 AM ESTOffice Visit [facility] [address] [facility] [address] [place] [address] Anthony Sanchez MD [address] [facility] [address] [place] [address] Health MaintenanceDue DateLast DoneCommentsCT Lvkaatokkleb41/03/1955Colonoscopy 1955olorectal Cancer Wbtgcowlh00/03/1955FIT-DNA1954FIT1955 FOBT1955Txhwdbaqwqmzt27/03/1955OVID-19 Vaccine ( season) 512/03/2020, 06/14/2020, 05/25/2020Medicare Annual Wellness (AWV) 5102/13/2023, 12/15/2023, 12/15/2023, Additional history exists Pneumococcal Vaccine: 65+ OpvteEggfjdaob53/09/2020, 12/18/2019Influenza Vaccine Oviwhmatz85/19/2025, 12/15/2023, 12/09/2021, Additional history exists Procedures Procedure NamePriorityDate/TimeAssociated DiagnosisCommentsMHPT CULT, BLOOD Jrmeylr5312/13/2024 3:25 AM EST MHPT CULT,ZCFJHLgwoyai81/05/2025 3:20 AM EST from Last 3 Months Results * MHPT CULT, BLOOD (12/13/2024 3:25 AM EST)ComponentValueRef RangeTest Method Analysis TimePerformed AtPathologist SignatureMHPT CULT, BLOODSpecimen Description .BLOODMHPTMHPT CULT, BLOODSpecial Requests 10ML, LEFT FOREARM, ED MHPTMHPT CULT, BLOODCulture NO GROWTH 5 DAYSMHPTMHPT CULT, BLOODReport Status FINAL 12/18/2024MHPTSpecimen (Source)Anatomical Location / Laterality Collection Method / VolumeCollection TimeReceived Time12/13/2024 3:25 AM EST 12/13/2024 4:18 AM EST Narrative [facility] - 12/18/2024 9:16 AM EST Original Ordering Provider: RAHEL HAWK Authorizing ProviderResult TypeResult StatusGeneric External Data Provider CLINISYNCFinal ResultPerforming OrganizationAddressCity/State/ZIP CodePhone Number [facility] MHPT * MHPT CULT,BLOOD (12/13/2024 3:20 AM EST)ComponentValueRef RangeTest Method Analysis TimePerformed AtPathologist SignatureMHPT CULT,BLOODSpecimen Description .BLOODMHPTMHPT CULT,BLOODSpecial Requests 10ML, RIGHT FOREARM, ED MHPTMHPT CULT,BLOODCulture NO GROWTH 5 DAYSMHPTMHPT CULT,BLOODReport Status FINAL 12/18/2024MHPTSpecimen (Source)Anatomical Location / Laterality Collection Method / VolumeCollection TimeReceived Time12/13/2024 3:20 AM EST 12/13/2024 4:17 AM EST Narrative [facility] - 12/18/2024 9:16 AM EST Original Ordering Provider: RAHEL HAWK Authorizing ProviderResult TypeResult StatusGeneric External Data Provider CLINISYNCFinal ResultPerforming OrganizationAddressCity/State/ZIP CodePhone Number [facility] MHPT from Last 3 Months Insurance Care Teams Team MemberRelationshipSpecialtyStart DateEnd Shala Reynolds MD [address] [place] [address] PCP - GeneralFamily Medicine06/16/22
--- OUTSIDE RECORDS SUMMARY | 2025-01-02 19:24 | XMS_ITS | Clinical Summary ---
Author Organization [facility] Address [address] [place] [address] Phone Care Team Providers Care Seo Consultant Name Role Phone Unavailable Primary Care Provider Unavailabl e Encounters DateTypeDepartmentCare PzblZejbihtcbsp85/10/2025Scanned Document [facility] [address] [place] [address] Scanning, Generic Provider from Last 3 Months Social History Tobacco UseTypesPacks/DayYears UsedDateSmoking Tobacco: Never AssessedSex and Gender InformationValueDate RecordedSex Assigned at BirthNot on fileLegal Sex Male01/03/2022 7:22 AM ESTGender IdentityNot on fileSexual OrientationNot on file Plan of Treatment Health MaintenanceDue DateLast DoneCommentsCT Rccsiionekvs43/03/1955Colonoscopy 1954olorectal Cancer Wadvafoln53/03/1955FIT-DNA (Cologuard)1955FIT 1955Lipid Panel1955 8990Joqqvapiqbqyx05/03/1955Welcome to Medicare Visit 1955MMR Vaccines (1 of 1 - Standard series)09/11/1955Hepatitis C Screening 1972DTaP/Tdap/Td Vaccines (1 - Tdap)1976Pneumococcal Vaccine (1 of 1 - PCV)2004Zoster Vaccines (1 of 2)2004Influenza Vaccine (#1) 5COVID-19 Vaccine (1 - season)2024RSV High Risk: (Elderly (60+) or Population) (1 - 1-dose 75+ series)2029HIB VaccinesAged OutNo longer eligible based on patient's age to complete this topicHPV Vaccines Aged OutNo longer eligible based on patient's age to complete this topic Hepatitis A VaccinesAged OutNo longer eligible based on patient's age to complete this topicHepatitis B VaccinesAged OutNo longer eligible based on patient's age to complete this topicIPV VaccinesAged OutNo longer eligible based on patient's age to complete this topicMeningococcal VaccineAged OutNo longer eligible based on patient's age to complete this topicRotavirus VaccinesAged Out No longer eligible based on patient's age to complete this topic Procedures Procedure NamePriorityDate/TimeAssociated DiagnosisCommentsECHOCARDIOGRAM 11/17/2024 from Last 3 Months Results * Echocardiogram (11/17/2024) Narrative 11/17/2024 Ordered by an unspecified provider. Authorizing ProviderResult TypeResult StatusGeneric Provider ScanningCV ECHO PROCEDURESFinal Result from Last 3 Months Insurance
--- OUTSIDE RECORDS SUMMARY | 2025-01-02 19:24 | XMS_ITS | Encounter Summary ---
Author Organization [facility] Address [address] [place] [address] Care Team Providers Care Continuous Miner Operator Helper Name Role Phone Shala Reynolds MD Primary Care Provider [phone] Encounter Details DateTypeDepartmentCare Team (Latest Contact Info)Jpltyuramif96/20/2025amboo flowsheet [facility] [address] [place] [address] Anthony Sanchez MD [address] [place] [address] [phone] Social History Tobacco UseTypesPacks/DayYears UsedDateSmoking Tobacco: NeverSmokeless Tobacco: NeverAlcohol UseStandard Drinks/WeekCommentsNot Currently0 (1 standard drink = 0.6 oz pure alcohol)PHQ-2AnswerDate RecordedPatient Health Questionnaire-2 Score Sex and Gender InformationValueDate RecordedSex Assigned at BirthMale 07/18/2022 9:11 AM EDTLegal WpjFref8404/22/2022 7:26 PM EDTGender IdentityMale 07/18/2022 9:11 AM EDTSexual OrientationNot on filedocumented as of this encounter Plan of Treatment DateTypeDepartmentCare Team (Latest Contact Info)Nkxphlhrjkf49/19/2025 10:20 AM ESTOffice Visit [facility] [address] [facility] [address] [place] [address] Anthony Sanchez MD [address] [place] [address] [phone] documented as of this encounter Visit Diagnoses Not on filedocumented in this encounter Additional Health Concerns AssessmentNoted TimePHQ-9 Depression Total Score: 10:00 AM EST documented as of this encounter Care Teams Team MemberRelationshipSpecialtyStart DateEnd Date Shala Reynolds MD [address] [place] [address] PCP - GeneralFamily Medicine06/16/22documented as of this encounter
[2025-01-02 19:50] LABS: Anion Gap 12.2; Blood Urea Nitrogen 42.0 mg/dL (7.0-18.0); Calcium 9.6 mg/dL (8.5-10.1); Carbon Dioxide 30.4 mmol/L (21.0-32.0); Chloride 105 mmol/L (98-107); Estimated GFR (African America >60 (>=60 mL/min/1.73m^2); Estimated GFR (Non-African Ame >60 (>=60 mL/min/1.73m^2); Glucose 144 mg/dL (74-106); Potassium 3.6 mmol/L (3.5-5.1); Sodium 144 mmol/L (136-145)
[2025-01-02 20:09] LABS: Hematocrit 36.2 % (42.0-54.0); Hemoglobin 12.1 g/dL (14.0-18.0); Immature Granulocytes Abs Auto 0.01 10^3/uL (0.00-0.03); Immature Granulocytes Pct Auto 0.3 % (0.0-0.5); Lymphocytes Absolute Auto 1.3 10^3/uL (1.2-3.8); Mean Corpuscular HGB Conc 33.4 g/dL (29.9-35.2); Mean Corpuscular Hemoglobin 33.1 pg (25.9-34.0); Mean Corpuscular Volume 98.9 fL (80.0-94.0); Platelet Count 115 10^3/uL (150-450); Red Blood Count 3.66 10^6/uL (4.70-6.10); White Blood Count 3.8 10^3/uL (4.0-11.0)
[2025-01-02] MEDS: 0.9 % SODIUM CHLORIDE 1,000 ML 999 ML IV (20:15)
[2025-01-02 20:31] LABS: Glucose Urine UA NEGATIVE (NEGATIVE)
[2025-01-02 20:45] LABS: Cast Seen? NONE SEEN #/LPF (NONE SEEN); Crystals Seen? None Seen #/HPF (None Seen); Urine Culture Indicated YES-FRMC
[2025-01-02 22:03] LABS: Cannabinoid Screen Urine NEGATIVE (NEGATIVE); Methamphetamines Screen Urine NEGATIVE (NEGATIVE); Tricyclic Antidepressant Urine NEGATIVE (NEGATIVE)
--- NOTE | 2025-01-02 23:57 | PC.NURSE ---
Upon arriving in the room from ED.. Patient is extremely drowsy. Patient was able to state his name and birthday. His speech is very mumbled. Unable to obtain medical history and background information from patient.
[2025-01-03] VITALS (22 sets, daily range): BP systolic 97–151; BP diastolic 52–69; PULSE 74–117; TEMP 37.1–40.3; O2SAT 88–95
--- NOTE | 2025-01-03 00:08 | PC.NURSE ---
Gave the patient a bedbath with MELVI Scott. Patient was bathed and lotioned. Clean gown and socks put on patient. Warm blanket given.
[2025-01-03] MEDS: 0.9 % SODIUM CHLORIDE 1,000 ML 1000 ML IV (05:01)
[2025-01-03] MEDS: METOPROLOL TARTRATE 5 MG/5 ML VIAL IVP (05:01)
[2025-01-03] MEDS: ACETAMINOPHEN 650 MG RECTAL SUPPOSITORY PR (05:02)
[2025-01-03] MEDS: PIPERACILLIN SODIUM/TAZOBACTAM 4.5 GM in 0.9 % SODIUM CHLORIDE 50 ML IV (05:45)
[2025-01-03 05:51] LABS: Hematocrit 28.0 % (42.0-54.0); Hemoglobin 10.3 g/dL (14.0-18.0); Immature Granulocytes Abs Auto 0.02 10^3/uL (0.00-0.03); Immature Granulocytes Pct Auto 0.5 % (0.0-0.5); Lymphocytes Absolute Auto 0.1 10^3/uL (1.2-3.8); Mean Corpuscular HGB Conc 36.8 g/dL (29.9-35.2); Mean Corpuscular Hemoglobin 37.3 pg (25.9-34.0); Mean Corpuscular Volume 101.4 fL (80.0-94.0); Platelet Count 95 10^3/uL (150-450); Red Blood Count 2.76 10^6/uL (4.70-6.10); White Blood Count 4.2 10^3/uL (4.0-11.0)
[2025-01-03] MEDS: 0.9 % SODIUM CHLORIDE 1,000 ML 500 ML IV (06:17)
[2025-01-03 06:18] LABS: Alanine Aminotransferase 42 U/L (16-63); Albumin Globulin Ratio 0.9; Albumin Level 3.3 g/dL (3.4-5.0); Alkaline Phosphatase 104 U/L (46-116); Anion Gap 14.6; Aspartate Amino Transferase 37 U/L (15-37); Blood Urea Nitrogen 37.0 mg/dL (7.0-18.0); Calcium 8.9 mg/dL (8.5-10.1); Carbon Dioxide 23.0 mmol/L (21.0-32.0); Chloride 110 mmol/L (98-107); Estimated GFR (African America >60 (>=60 mL/min/1.73m^2); Estimated GFR (Non-African Ame >60 (>=60 mL/min/1.73m^2); Globulin 3.5 g/dL; Glucose 166 mg/dL (74-106); Magnesium 1.7 mg/dL (1.8-2.4); Potassium 3.6 mmol/L (3.5-5.1); Sodium 144 mmol/L (136-145); Total Protein 6.8 g/dL (6.4-8.2)
[2025-01-03] MEDS: VANCOMYCIN HCL 1,500 MG in 0.9 % SODIUM CHLORIDE 500 ML 250 MG IV (06:22)
[2025-01-03 06:26] LABS: Lactate/Lactic Acid 3.8 mmol/L (0.4-2.0)
--- NOTE | 2025-01-03 06:58 | PC.NURSE ---
0335- patients vital signs were taken. QQ=518/59, BG=273, RR=18, Pulse ox=90%, Temp.=99.8. 0430- patient was shaking and mumbling incoherently. Rectal temp was then inxnb=215.5. Dr. Nelson was contacted. 043- RN messaged good morning, the patient in room 216, Moose Plascencia has a HR in the 130s, and a rectal temp of 104.5. He is also very lethargic, shaking, and mumbling. What would you like for us to give him? , was sent priority. 439- Dr. Nelson messaged I will take a look. What is his BP? BP was given to Dr. Nelson at that time. 0- Leslie had put in multiple orders for normal saline bolus, metoprolol, zosyn, and vancomycin. 0515- pharmacy verified everything and bolus was started. New IV access was started in left forearm to run zosyn and vancomycin. 06- Leslie ordered laguerre insertion, laguerre insertion was attempted but there was blockage. RN had to use a coude for laguerre insertion. 06- rectal temp was taken gflds=559.4.
--- NOTE | 2025-01-03 07:18 | CT_ITS ---
The [address] [address] Patient Name: DENNIS HANEY MRN: [id number] date: 1955 Sex: M Assigned Patient Location: Current Patient Location: Accession/Order Number: [id number] Exam Date: 01/03/2025 11:50 Report Date: 01/03/2025 15:30 At the request of: SIM MONROE MD Procedure: CT chest wo con CT CHEST, ABDOMEN AND PELVIS WITHOUT INTRAVENOUS CONTRAST: CLINICAL HISTORY: Hematuria, sepsis r/o intra abd infection COMPARISON: None TECHNIQUE: Spiral images were obtained through the chest, abdomen and pelvis wihout the administration of IV contrast. This CT exam was performed using one or more following dose reduction techniques: Automated exposure control, adjustment of the mA and/or kV according to patient size, or use of iterative reconstruction technique. FINDINGS: CT chest: Mediastinum:Cardiomegaly. Trace pericardial fluid. A large main pulmonary trunk noted. No bulky mediastinal or hilar adenopathy. Lungs:Patchy interstitial and alveolar opacities both lung bases. Soft tissues/Bones: Coarsened trabecula involving the T10 vertebral body and posterior elements.[ [] CT abdomen and pelvis: Organs:Degraded due to lack contrast.[ Common bile duct 8 mm. Cholecystectomy. Multiple left renal calculi noted up to 4 mm in size. No hydronephrosis. Otherwise liver, spleen, adrenals, pancreas unremarkable. GI: Large amount of stool rectosigmoid junction may raise possibility for fecal impaction and/or constipation. Moderate colonic stool elsewhere. There is a loop of bowel within the central to lower abdomen with stranding haziness worrisome for focal enteritis. High density material within the lumen of the appendix possibly related to inspissated secretions. No CT findings acute appendicitis. [ Pelvis:[Johnston catheter balloon within the] bladder. Prostate unremarkable. Peritoneum/Retroperitoneum:No free air or free fluid. Aorta nonaneurysmal.[ Abd wall/Bones:Coarsened trabecula involving the T10 vertebral body and posterior elements.[Flattening and remodeling left femoral head likely due to subchondral collapse due to underlying AVN CT/CT abdomen pelvis wo con IMPRESSION: CT chest: Bibasilar interstitial opacity May relate to atelectasis versus pneumonia. Cardiomegaly. Coarsened trabecula involving the T10 vertebral body, this may suggest fibrous dysplasia or pagetoid changes in the appropriate clinical setting CT abdomen/pelvis: Short segment of bowel with wall thickening and mesenteric congestion worrisome for focal enteritis. Large amount of stool rectosigmoid junction worrisome for fecal impaction and/or constipation. Left-sided renal calculi, nonobstructive. Bibasilar airspace disease involving the lungs worrisome for pneumonia. Left hip avascular necrosis Impression dictated by: Gary Bunn M.D. 01/03/2025 3:30 PM Dictation Location: [place] [address] Electronically authenticated by: [id number] Y Date: 01/03/2025 15:30
--- NOTE | 2025-01-03 07:18 | CT_ITS ---
The [address] [address] Patient Name: DENNIS HANEY MRN: [id number] date: 1955 Sex: M Assigned Patient Location: Current Patient Location: Accession/Order Number: [id number] Exam Date: 01/03/2025 11:50 Report Date: 01/03/2025 15:30 At the request of: SIM MONROE MD Procedure: CT chest wo con CT CHEST, ABDOMEN AND PELVIS WITHOUT INTRAVENOUS CONTRAST: CLINICAL HISTORY: Hematuria, sepsis r/o intra abd infection COMPARISON: None TECHNIQUE: Spiral images were obtained through the chest, abdomen and pelvis wihout the administration of IV contrast. This CT exam was performed using one or more following dose reduction techniques: Automated exposure control, adjustment of the mA and/or kV according to patient size, or use of iterative reconstruction technique. FINDINGS: CT chest: Mediastinum:Cardiomegaly. Trace pericardial fluid. A large main pulmonary trunk noted. No bulky mediastinal or hilar adenopathy. Lungs:Patchy interstitial and alveolar opacities both lung bases. Soft tissues/Bones: Coarsened trabecula involving the T10 vertebral body and posterior elements.[ [] CT abdomen and pelvis: Organs:Degraded due to lack contrast.[ Common bile duct 8 mm. Cholecystectomy. Multiple left renal calculi noted up to 4 mm in size. No hydronephrosis. Otherwise liver, spleen, adrenals, pancreas unremarkable. GI: Large amount of stool rectosigmoid junction may raise possibility for fecal impaction and/or constipation. Moderate colonic stool elsewhere. There is a loop of bowel within the central to lower abdomen with stranding haziness worrisome for focal enteritis. High density material within the lumen of the appendix possibly related to inspissated secretions. No CT findings acute appendicitis. [ Pelvis:[Johnston catheter balloon within the] bladder. Prostate unremarkable. Peritoneum/Retroperitoneum:No free air or free fluid. Aorta nonaneurysmal.[ Abd wall/Bones:Coarsened trabecula involving the T10 vertebral body and posterior elements.[Flattening and remodeling left femoral head likely due to subchondral collapse due to underlying AVN CT/CT chest wo con IMPRESSION: CT chest: Bibasilar interstitial opacity May relate to atelectasis versus pneumonia. Cardiomegaly. Coarsened trabecula involving the T10 vertebral body, this may suggest fibrous dysplasia or pagetoid changes in the appropriate clinical setting CT abdomen/pelvis: Short segment of bowel with wall thickening and mesenteric congestion worrisome for focal enteritis. Large amount of stool rectosigmoid junction worrisome for fecal impaction and/or constipation. Left-sided renal calculi, nonobstructive. Bibasilar airspace disease involving the lungs worrisome for pneumonia. Left hip avascular necrosis Impression dictated by: Gary Bunn M.D. 01/03/2025 3:30 PM Dictation Location: [place] [address] Electronically authenticated by: [id number] Y Date: 01/03/2025 15:30
--- NOTE | 2025-01-03 08:00 | ECG_ITS ---
The [facility] Test Date: 2025-01-03 Pat Name: DENNIS HANEY Department: Room: [facility] Gender: Male Vp Software Support: : 1955 Requested By: [id number] Order Number: [id number] Reading MD: EDGAR RITCHIE M.D. Measurements Intervals [place] Rate: 109 P: 82 WV: 155 QRS: 70 QRSD: 92 T: 79 QT: 324 QTc: 436 Interpretive Statements SINUS TACHYCARDIA ST DEPRESSION, CONSIDER ISCHEMIA ABNORMAL ECG Compared to ECG 01/02/2025 18:26:08 ST (T wave) deviation now present Electronically Signed On 01-03-2025 6:45:32 EST by EDGAR RITCHIE M.D.
[2025-01-03] MEDS: POTASSIUM PHOS,M-BASIC-D-BASIC 30 MMOL in 0.9 % SODIUM CHLORIDE 250 ML 43.333 MMOL IV (09:51)
[2025-01-03] MEDS: TAMSULOSIN HCL 0.4 MG CAPSULE PO (09:52)
[2025-01-03 10:05] LABS: Lactate/Lactic Acid 2.6 mmol/L (0.4-2.0)
--- NOTE | 2025-01-03 10:06 | PM.HP ---
HPI H&P: HPI History of Present Illness Chief complaint: ALERED MENTAL STATUS UTI Narrative: Mr Plascencia is a 69-year-old gentleman with a recent history of stroke with a hemorrhagic transformation. Patient was recently admitted to the rehab unit and subsequently transferred to the longterm for skilled care. Patient completed these skilled care at [facility] and discharged home. Patient is known to have seizure. Not sure if patient has been taking his medications at home. His sister went to check up on him and found a lot of bottles with pills on the floor. Patient had change of mental status described as confusion and disorientation. She called 911 and the patient was brought to the emergency room. Please refer to emergency room evaluation, impression and treatment plan. I was asked to admit him for further monitoring and evaluation Around 5:00 in the morning, patient developed fever. His temperature went up to 104. His pulse went up to 120. Sepsis protocol was initiated and follow including 30 mL/kg fluid infusion with bedside modification due to a chest x-ray showing interstitial changes, blood culture and urine culture already been done. Patient was started on Zosyn and vancomycin. Patient also had a change in mental status as described by his night nurse, mumbling and incoherent. Few hours later the patient recovered and was back to almost baseline cognition. Temperature is down so is his heart rate. Opioid HPI Opioid Management Most Recent Pain and Opioid Data: Last Pain Assessment Today, 10:06 Last MAR Pain Assessment Today, 05:19 Ur Phencyclidine Scrn, (NEGATIVE) Negative 01/02/25, 19:49 Review of Systems ROS Status of ROS 10 or more systems reviewed and unremarkable except as noted in history and below PFSH PFS Surgical History (Updated 01/02/25 @ 22:20 by Felicity Nicholson) S/P dilatation of esophageal stricture ?Z98.890 - Other specified postprocedural states (ICD-10) ?Z87.19 - Personal history of other diseases of the digestive system (ICD-10) Meds Home Medications and Allergies Home Medications ?Medication ?Instructions ?Recorded ?Confirmed ?Type atorvastatin 10 mg tablet 10 mg PO .QHS 11/16/24 01/03/25 History clonazepam 0.5 mg tablet 0.5 mg PO BID PRN anxiety 11/16/24 01/02/25 History felbamate 600 mg tablet 1,200 mg PO QID 11/16/24 01/02/25 History zonisamide 100 mg capsule 100 mg PO BIDWM 11/16/24 01/03/25 History acetaminophen 500 mg capsule 1,000 mg PO TID 01/02/25 01/03/25 History (Mapap (acetaminophen)) tamsulosin 0.4 mg capsule (Flomax) 0.4 mg PO DAILY 01/02/25 01/02/25 History trazodone 50 mg tablet 50 mg PO .qhs 01/02/25 01/02/25 History zonisamide 50 mg capsule 150 mg PO .qhs 01/02/25 01/02/25 History Allergies Allergy/AdvReac Type Severity Reaction Status Date / Time No Known Drug Allergies Allergy Verified 01/02/25 18:36 Exam Narrative Exam Narrative: Patient is lying in bed. Cachectic and frail. Bitemporal muscle wasting. Upper and lower extremities muscle wasting and atrophy. Patient is awake. Able to answer questions. Unable to engage in complex conversation. Able to follow commands and is moving all of his extremities symmetrically. His neck is very supple. No nuchal rigidity whatsoever. Chest exam is clear, heart is regular, slightly tachycardic. Abdomen is soft. Lower extremities no edema Constitutional Vital Signs, click to edit/add: Last Vital Signs Temp 99.8 F 01/03/25 08:42 Pulse 107 H 01/03/25 09:58 Resp 18 01/03/25 04:00 BP 138/69 01/03/25 08:42 Pulse Ox 88 L 01/03/25 08:42 O2 Del Method Room Air 01/03/25 08:42 Results Labs Labs: Short CBC 01/02/25 01/03/25 Range/Units 19:18 05:18 WBC 3.8 L 4.2 (4.0-11.0) 10^3/uL Hgb 12.1 L 10.3 L (14.0-18.0) g/dL Hct 36.2 L 28.0 L (42.0-54.0) % Plt Count 115 L 95 L (150-450) 10^3/uL BMP 01/02/25 01/03/25 19:18 05:18 Sodium 144 144 Potassium 3.6 3.6 Chloride 105 110 H Carbon Dioxide 30.4 23.0 BUN 42.0 H 37.0 H Creatinine 1.07 1.14 Glucose 144 H 166 H Calcium 9.6 8.9 Liver Function 01/03/25 Range/Units 05:18 Total Bilirubin 0.3 (0.2-1.0) mg/dL AST 37 (15-37) U/L ALT 42 (16-63) U/L Alkaline Phosphatase 104 (46-116) U/L Albumin 3.3 L (3.4-5.0) g/dL Urine 01/02/25 Range/Units 19:39 Urine Color Lt. yellow (YELLOW) Urine Clarity Cloudy A (CLEAR) Urine pH 6.0 (5.0-9.0) Ur Specific [place] 1.020 (1.005-1.025) Urine Protein 30 A (NEG/TRACE) mg/dL Urine Glucose (UA) Negative (NEGATIVE) mg/dL Assessment and Plan Assessment and Plan (1) Altered mental status: Plan Sepsis manifested by elevated temperature, tachycardia, elevated blood pressure and elevated lactic acid. Encephalopathy and thrombocytopenia. This started around 5 AM Sepsis protocol was followed including IV fluid infusion, cultures and antibiotic administration according to sepsis guidelines. The source of infection is not yet determined. Could be urinary. Patient did have transient encephalopathy but now back to baseline almost. His neck is very supple. No nuchal rigidity whatsoever. Very unlikely meningitis. Could be viral illness. Requested influenza and COVID-19 testing I started patient empirically on Zosyn and vancomycin 1 dose His lactic is trending down. I requested CT chest and abdomen rule out thoracic and/or abdominal infectious process. Repeat lactic acid Altered mental status, encephalopathy. Could be related to early sepsis. Not sure if patient was overdosing on his antiseizure medication at home as his sister reported that there was bottles and pills scattered all over the floor. Toxicology screen is positive for benzo. Is on Xanax at home CAT scan of the head does not show acute intracranial process. No focal deficit. Patient is known to have recent stroke with hemorrhagic transformation. Avoid antiplatelets and anticoagulation at this time. Monitor his mental status over the next 24 to 48 hours. Consideration to repeat MRI of the brain. UTI, microscopic hematuria Cultures pending. CT abdomen pelvis rule out obstructive uropathy or kidney stone or cyst or malignancy. Patient may need additional urological investigation for his microscopic hematuria rule out underlying urological malignancy. This could be done in the outpatient setting. May need cystoscopy and additional renal imaging. Hypokalemia, hypophosphatemia, hypomagnesemia Potassium, magnesium and phosphate supplementation Cachexia, frailty, muscle wasting, sarcopenia, moderate protein calorie malnutrition Unknown cause or etiology. Patient may need the cachexia and weight loss investigation including workup to rule out underlying malignancy Meanwhile I would start patient on oral protein supplementation if his mental status improves over the next 24 to 48 hours. Anemia, no evidence of acute blood loss. Patient will likely require to have anemia workup to be done in the outpatient setting to be handled by PCP in collaboration with other needed outpatient providers. This may include but not limited to EGD, colonoscopy, referral to see hematology and other needed age-appropriate cancer screening. Chronic, subacute medical conditions not listed above, abnormal labs and imaging, incidental findings seen on labs and or imaging. These would need to be addressed. Could be addressed later on or in the outpatient setting by PCP collaboration with other needed outpatient providers when time and condition are appropriate. Urinary Catheter Management Urinary Catheter Management Coude: Cath placed during this visit: yes Urethral indwelling: No Insertion date: 01/03/25 Insertion time: 06:20
--- NOTE | 2025-01-03 10:18 | W.ACP ---
Advance Care Planning Advance Care Planning Discussion Advance care planning discussion summary: Advance care planning and goals of care discussion. Patient does not have or children. His sister Magdalena is POA. Magdalena gave me permission to proceed with conversation lasted for about 20 minutes. I gave Magdalena information about his presentation, diagnostic and therapeutic intervention as well as my impression as listed on my H&P. Magdalena gave me information about his recent illness, hospitalization and skilled care. We discussed his CODE STATUS. We discussed that resuscitative effort in case of a cardiac or respiratory arrest. Magdalena stated that Moose had expressed his wishes in the past to be full code. He wants to receive all needed medical care including resuscitative effort in case of a cardiac or respiratory arrest At this time I will respect and honor Moose's wishes as relayed to me by Sister Magdalena.
--- NOTE | 2025-01-03 10:37 | CM.NOTE ---
Rounds made with Dr. Nelson, discussed plan of care with pt and pt's sister (Magdalena, medical POA). CM or SW will be in later to assess patients discharge needs.
[2025-01-03 11:20] LABS: SARS-CoV-2 Ag NEGATIVE (NEGATIVE)
[2025-01-03] MEDS: ZONISAMIDE 100 MG CAPSULE PO ×3 (11:27→21:35)
--- NOTE | 2025-01-03 12:00 | PC.NURSE ---
1115 Walked into room due to IV alarming. Patient had ripped out IV, gown, and tele. Patient cleaned up and IV restarted.
[2025-01-03] MEDS: ACETAMINOPHEN 325 MG TABLET 650 MG PO (13:28)
[2025-01-03] MEDS: MAGNESIUM SULFATE IN WATER 2 GM/50 ML PREMIX IV (13:45)
--- NOTE | 2025-01-03 13:47 | SWNOTE1 ---
Addendum entered by Mathew Cuenca 01/05/25 09:15: Correction from note on 01/03. IMM was discussed with pt's sister, Diandra. Original Note: Important Message from Medicare reviewed and discussed with patient's daughter, Diandra. Per report, Diandra is medical POA. Diandra verbalized understanding and SW signed the form that it was reviewed. Original given to patient and copy placed in patient?s chart.
--- NOTE | 2025-01-03 13:47 | SWNOTE1 ---
Addendum entered by Mathew Cuenca 01/03/25 14:49: Correction to documentation, Diandra is pt's sister. Both sisters live close by. Original Note: Pt is confused at this time. SW called daughter, Diandra, who is medical POA. Diandra voiced he has been home for 2 days after being at [facility] for rehab. They did appeal his insurance a few times to try to get him more days. Pt was minimally walking with walker at [facility]. Pt's 2 daughters assisted with getting the home handicap accessible. They both live close by. SW did ask about potential discharge plans. Pt's daughter did voice that he has a lot going on right now and unsure of plans. She stated he was set up with [facility] and the nurse and Physical therapist came in, but that was not going to be enough. She is aware that pt will likely need 24/7 care at home. She mentioned hospice to SW as well. JIMI advised pt's daughter to have that conversation with Dr. Nelson tomorrow as he will have insight to this as well. JIMI also spoke with her about the potential of pt needing residential care as well. She voiced she thinks they may be at that point now. She stated her brother handles that part and they know they can get him in to a facility medicaid pending. She voiced they know the process. JIMI advised that we will see what happens within the next 24-48 hours. JIMI let daughter know that SW/CM not here tomorrow due to Thanksgiving, but SW/CM will be here Wednesday to assist. She did mention to SW getting in touch with Dr. Sanchez his Neurologist. JIMI will pass this on to Dr. Nelson.
[2025-01-03] MEDS: PIPERACILLIN SODIUM/TAZOBACTAM 3.375 GM in 0.9 % SODIUM CHLORIDE 50 ML IV ×2 (15:03→21:31)
[2025-01-03 17:02] LABS: Lactate/Lactic Acid 2.0 mmol/L (0.4-2.0)
[2025-01-03] MEDS: ATORVASTATIN CALCIUM 10 MG TABLET PO (21:32)
[2025-01-03] MEDS: ZONISAMIDE 25 MG CAPSULE 50 MG PO (21:36)
[2025-01-03] MEDS: TRAZODONE HCL 50 MG TABLET PO (21:39)
[2025-01-04] VITALS (19 sets, daily range): BP systolic 107–158; BP diastolic 59–77; PULSE 82–97; TEMP 36.8–37.5; O2SAT 91–94
[2025-01-04] MEDS: PIPERACILLIN SODIUM/TAZOBACTAM 3.375 GM in 0.9 % SODIUM CHLORIDE 50 ML IV ×3 (05:36→20:02)
[2025-01-04] MEDS: ZONISAMIDE 100 MG CAPSULE PO ×3 (05:37→22:17)
[2025-01-04 06:53] LABS: Lactate/Lactic Acid 1.2 mmol/L (0.4-2.0)
[2025-01-04 07:01] LABS: Hematocrit 27.8 % (42.0-54.0); Hemoglobin 9.4 g/dL (14.0-18.0); Mean Corpuscular HGB Conc 33.8 g/dL (29.9-35.2); Mean Corpuscular Hemoglobin 33.2 pg (25.9-34.0); Mean Corpuscular Volume 98.2 fL (80.0-94.0); Platelet Count 59 10^3/uL (150-450); Red Blood Count 2.83 10^6/uL (4.70-6.10); White Blood Count 15.1 10^3/uL (4.0-11.0)
[2025-01-04 07:04] LABS: Albumin Globulin Ratio 0.8; Albumin Level 2.8 g/dL (3.4-5.0); Alkaline Phosphatase 127 U/L (46-116); Anion Gap 16.6; Blood Urea Nitrogen 51.0 mg/dL (7.0-18.0); Calcium 8.1 mg/dL (8.5-10.1); Carbon Dioxide 21.4 mmol/L (21.0-32.0); Chloride 110 mmol/L (98-107); Estimated GFR (African America >60 (>=60 mL/min/1.73m^2); Estimated GFR (Non-African Ame 51 (>=60 mL/min/1.73m^2); Globulin 3.3 g/dL; Glucose 94 mg/dL (74-106); Potassium 4.0 mmol/L (3.5-5.1); Sodium 144 mmol/L (136-145); Total Protein 6.1 g/dL (6.4-8.2)
[2025-01-04 07:06] LABS: Magnesium 2.4 mg/dL (1.8-2.4)
[2025-01-04 07:13] LABS: Alanine Aminotransferase 782 U/L (16-63); Aspartate Amino Transferase 653 U/L (15-37)
[2025-01-04] MEDS: TAMSULOSIN HCL 0.4 MG CAPSULE PO (08:29)
--- NOTE | 2025-01-04 09:11 | PM.PN ---
Progress Note: Subjective Subjective Interval history: Uneventful night. Patient is awake this morning. Denies any chest or abdominal pain. Minimal cough. No seizure or convulsion. No new focal weakness or numbness. Exam Narrative Exam Narrative: Patient is lying in bed. No distress. Awake. Able to follow commands. Left arm is weak which is old. Cachectic and frail. Chest exam revealed bibasilar rhonchi. Abdomen soft, nontender. Lower extremities no edema. Constitutional Vital Signs, click to edit/add: Last Vital Signs Temp 98.5 F 01/04/25 08:28 Pulse 82 01/04/25 08:28 Resp 16 01/04/25 08:28 BP 126/66 01/04/25 08:28 Pulse Ox 94 L 01/04/25 08:28 O2 Del Method Room Air 01/04/25 08:28 O2 Flow Rate 2 01/03/25 16:03 Progress Note: Objective Labs Labs: Short CBC 01/04/25 Range/Units 05:54 WBC 15.1 H (4.0-11.0) 10^3/uL Hgb 9.4 L (14.0-18.0) g/dL Hct 27.8 L (42.0-54.0) % Plt Count 59 L (150-450) 10^3/uL BMP 01/04/25 05:54 Sodium 144 Potassium 4.0 Chloride 110 H Carbon Dioxide 21.4 BUN 51.0 H Creatinine 1.39 H Glucose 94 Calcium 8.1 L Liver Function 01/04/25 Range/Units 05:54 Total Bilirubin 0.6 (0.2-1.0) mg/dL AST 653 H* (15-37) U/L ALT 782 H* (16-63) U/L Alkaline Phosphatase 127 H (46-116) U/L Albumin 2.8 L (3.4-5.0) g/dL Progress Note: A&P Assessment and Plan (1) Altered mental status: Plan Sepsis manifested by elevated temperature, tachycardia, elevated blood pressure and elevated lactic acid. Encephalopathy and thrombocytopenia. Patient also had developed elevated LFTs. Sepsis protocol was followed. CAT scan of the chest and abdomen came back positive for basilar pneumonia. I suspect that the patient had aspirated when he developed altered mentation at home. Continue intravenous Zosyn. Blood cultures pending Basilar aspiration pneumonia Continue Zosyn Altered mental status, encephalopathy. Could be related to early sepsis. Not sure if patient was overdosing on his antiseizure medication at home as his sister reported that there was bottles and pills scattered all over the floor. Toxicology screen is positive for benzo. Is on Xanax at home CAT scan of the head does not show acute intracranial process. No focal deficit. Patient is known to have recent stroke with hemorrhagic transformation. Avoid antiplatelets and anticoagulation at this time. Patient is back to baseline state. No strong indication for repeat MRI imaging Acute elevated liver enzymes. Acute thrombocytopenia. These are likely related to sepsis Avoid antiplatelets or anticoagulation given thrombocytopenia and previous history of hemorrhagic cerebral stroke Trend LFTs and platelet count. UTI, microscopic hematuria Renal calculi Cultures pending. CT abdomen pelvis rule out obstructive uropathy or kidney stone or cyst or malignancy. CT scan does show multiple renal calculi which could explain his microscopic hematuria. Patient may need additional urological investigation for his microscopic hematuria rule out underlying urological malignancy. This could be done in the outpatient setting. May need cystoscopy and additional renal imaging. Hypokalemia, hypophosphatemia, hypomagnesemia Potassium, magnesium and phosphate supplementation History of seizure Is a preadmission antiepileptics have been resumed. Multiple abnormalities seen on CT imaging of the abdomen Patient does not have any tenderness in the abdomen. Other incidental finding would need to be addressed electively as listed below. Cachexia, frailty, muscle wasting, sarcopenia, moderate protein calorie malnutrition Unknown cause or etiology. Patient may need the cachexia and weight loss investigation including workup to rule out underlying malignancy Meanwhile I would start patient on oral protein supplementation if his mental status improves over the next 24 to 48 hours. Anemia, no evidence of acute blood loss. Patient will likely require to have anemia workup to be done in the outpatient setting to be handled by PCP in collaboration with other needed outpatient providers. This may include but not limited to EGD, colonoscopy, referral to see hematology and other needed age-appropriate cancer screening. Chronic, subacute medical conditions not listed above, abnormal labs and imaging, incidental findings seen on labs and or imaging. These would need to be addressed. Could be addressed later on or in the outpatient setting by PCP collaboration with other needed outpatient providers when time and condition are appropriate. Urinary Catheter Management Urinary Catheter Management Coude: Cath placed during this visit: yes Urethral indwelling: No Insertion date: 01/03/25 Insertion time: 06:20
[2025-01-04] MEDS: TRAZODONE HCL 50 MG TABLET PO (22:14)
[2025-01-04] MEDS: ZONISAMIDE 25 MG CAPSULE 50 MG PO (22:17)
[2025-01-05] VITALS (19 sets, daily range): BP systolic 121–172; BP diastolic 60–86; PULSE 73–92; TEMP 36.6–37.1; O2SAT 92–95
[2025-01-05] MEDS: PIPERACILLIN SODIUM/TAZOBACTAM 3.375 GM in 0.9 % SODIUM CHLORIDE 50 ML IV ×3 (05:43→22:54)
[2025-01-05] MEDS: ZONISAMIDE 100 MG CAPSULE PO ×3 (05:45→22:58)
[2025-01-05 06:03] LABS: Hematocrit 26.5 % (42.0-54.0); Hemoglobin 9.2 g/dL (14.0-18.0); Mean Corpuscular HGB Conc 34.7 g/dL (29.9-35.2); Mean Corpuscular Hemoglobin 35.0 pg (25.9-34.0); Mean Corpuscular Volume 100.8 fL (80.0-94.0); Platelet Count 69 10^3/uL (150-450); Red Blood Count 2.63 10^6/uL (4.70-6.10); White Blood Count 13.3 10^3/uL (4.0-11.0)
[2025-01-05 06:16] LABS: Albumin Globulin Ratio 0.7; Albumin Level 2.4 g/dL (3.4-5.0); Alkaline Phosphatase 116 U/L (46-116); Anion Gap 10.8; Aspartate Amino Transferase 263 U/L (15-37); Blood Urea Nitrogen 40.0 mg/dL (7.0-18.0); Calcium 8.3 mg/dL (8.5-10.1); Carbon Dioxide 22.3 mmol/L (21.0-32.0); Chloride 110 mmol/L (98-107); Estimated GFR (African America >60 (>=60 mL/min/1.73m^2); Estimated GFR (Non-African Ame >60 (>=60 mL/min/1.73m^2); Globulin 3.5 g/dL; Glucose 94 mg/dL (74-106); Potassium 4.1 mmol/L (3.5-5.1); Sodium 139 mmol/L (136-145); Total Protein 5.9 g/dL (6.4-8.2)
[2025-01-05 06:28] LABS: Alanine Aminotransferase 506 U/L (16-63)
--- NOTE | 2025-01-05 08:25 | CM.NOTE ---
Rounds made with Dr. Nelson, no discharge today. Discussed plan of care with pt, PT and OT will see pt today for discharge planning.
[2025-01-05] MEDS: TAMSULOSIN HCL 0.4 MG CAPSULE PO (09:04)
--- NOTE | 2025-01-05 10:07 | P.PN_ITS ---
Progress Note: Subjective Subjective Interval history: Patient is definitely more awake and alert compared to yesterday. Able to engage in simple conversation. He reported having some abdominal discomfort but unable to be consistent as far as the location of discomfort. No nausea or vomiting. Exam Narrative Exam Narrative: Patient is lying in bed. No distress. Awake. Able to follow commands. Left arm is weak which is old. Cachectic and frail. Chest exam revealed bibasilar rhonchi. Abdomen soft, nontender. Lower extremities no edema. Constitutional Vital Signs, click to edit/add: Last Vital Signs Temp 98.7 F 01/05/25 08:00 Pulse 87 01/05/25 09:58 Resp 18 01/05/25 08:00 BP 136/78 01/05/25 08:00 Pulse Ox 92 L 01/05/25 08:00 O2 Del Method Room Air 01/05/25 08:00 O2 Flow Rate 2 01/03/25 16:03 Progress Note: Objective Labs Labs: Short CBC 01/05/25 Range/Units 05:04 WBC 13.3 H (4.0-11.0) 10^3/uL Hgb 9.2 L (14.0-18.0) g/dL Hct 26.5 L (42.0-54.0) % Plt Count 69 L (150-450) 10^3/uL BMP 01/05/25 05:04 Sodium 139 Potassium 4.1 Chloride 110 H Carbon Dioxide 22.3 BUN 40.0 H Creatinine 1.06 Glucose 94 Calcium 8.3 L Liver Function 01/05/25 Range/Units 05:04 Total Bilirubin 0.4 (0.2-1.0) mg/dL Direct Bilirubin 0.1 (0.0-0.2) mg/dL AST 263 H (15-37) U/L ALT 506 H* (16-63) U/L Alkaline Phosphatase 116 (46-116) U/L Albumin 2.4 L (3.4-5.0) g/dL Progress Note: A&P Assessment and Plan (1) Altered mental status: Plan Sepsis manifested by elevated temperature, tachycardia, elevated blood pressure and elevated lactic acid. Encephalopathy and thrombocytopenia. Patient also had developed elevated LFTs. Sepsis parameters improved no longer tachycardic or hypotensive. White count is trending down. Lactic acid is back to normal. Sepsis protocol was followed. CAT scan of the chest and abdomen came back positive for basilar pneumonia. I suspect that the patient had aspirated when he developed altered mentation at home. Urine is coming back positive for E. coli more than 100,000 Continue intravenous Zosyn. Blood cultures pending Basilar aspiration pneumonia Continue Zosyn Bacteriuria, UTI Urine cultures positive for E. coli. Sensitivities pending Continue Zosyn. Altered mental status, encephalopathy. Could be related to early sepsis. Not sure if patient was overdosing on his antiseizure medication at home as his sister reported that there was bottles and pills scattered all over the floor. Toxicology screen is positive for benzo. Is on Xanax at home CAT scan of the head does not show acute intracranial process. No focal deficit. Patient is known to have recent stroke with hemorrhagic trans formation. Avoid antiplatelets and anticoagulation at this time. Patient is back to baseline state. No strong indication for repeat MRI imaging Acute renal failure, CT scan does not show any obstructive uropathy but positive for renal calculi that could explain his hematuria. LOVELY had resolved. Acute elevated liver enzymes. Trending in a positive direction Acute thrombocytopenia. Trending in a positive direction These are likely related to sepsis Avoid antiplatelets or anticoagulation given thrombocytopenia and previous history of hemorrhagic cerebral stroke All improving Hypokalemia, hypophosphatemia, hypomagnesemia Potassium, magnesium and phosphate supplementation. Repleted. Constipation, fecal impaction seen on CT. No bowel movement for several days Start patient on laxatives and stimulants History of seizure Is a preadmission antiepileptics have been resumed. Multiple abnormalities seen on CT imaging of the abdomen Patient does not have any tenderness in the abdomen. Other incidental finding would need to be addressed electively as listed below. Cachexia, frailty, muscle wasting, sarcopenia, moderate protein calorie malnutrition Unknown cause or etiology. Patient may need the cachexia and weight loss investigation including workup to rule out underlying malignancy Meanwhile I would start patient on oral protein supplementation if his mental status improves over the next 24 to 48 hours. Anemia, no evidence of acute blood loss. Patient will likely require to have anemia workup to be done in the outpatient setting to be handled by PCP in collaboration with other needed outpatient prov iders. This may include but not limited to EGD, colonoscopy, referral to see hematology and other needed age-appropriate cancer screening. 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 Patient is not on anticoagulation or antiplatelets at home prior to admission PT OT eval and treatment. Patient may need additional session of short-term skilled care Chronic, subacute medical conditions not listed above, abnormal labs and imaging, incidental findings seen on labs and or imaging. These would need to be addressed. Could be addressed later on or in the outpatient setting by PCP collaboration with other needed outpatient providers when time and condition are appropriate. Urinary Catheter Management Urinary Catheter Management Coude: Cath placed during this visit: yes Urethral indwelling: No Insertion date: 01/03/25 Insertion time: 06:20
--- NOTE | 2025-01-05 10:35 | SWNOTE1 ---
SW stopped in to speak with pt in regards to discharge plans. Pt was sitting up in the chair. Pt voiced he was feeling better and he was alert and oriented to place, month, year. SW asked if therapy had been in to work with him. Pt confirmed they were in and helped get him from bed to chair. He voiced it went alright. SW to review notes. SW asked pt if he would be open to going back to a SNF to get stronger? Pt voiced he would be open to this. SW asked where he was in the past. Pt let SW know he was at [facility] and he did like it there and would return there. SW asked permission to call his sister Diandra to discuss once SW reviews therapy evals. Pt gave permission for SW to call. At this time pt has no other needs. SW to call [facility] to see if they have openings.
--- NOTE | 2025-01-05 10:42 | SWNOTE1 ---
JIMI did call [facility] and spoke to Marisol in admissions. She is familiar with pt. She stated they did try to do an appeal to get more days, but lost appeal. She is not sure insurance will approve again, but she will gladly review the referral. JIMI to call sister Diandra as well. Once therapy evals are complete, JIMI will send referral.
--- NOTE | 2025-01-05 10:52 | SWNOTE1 ---
JIMI called pt's sister Diandra to discuss dc planning, pt's sister voiced she was on her way in. JIMI to stop by pt's room to discuss dc plans.
[2025-01-05] MEDS: SENNOSIDES/DOCUSATE SODIUM 1 TAB TABLET 2 TAB PO (11:23)
[2025-01-05] MEDS: MAGNESIUM CITRATE 296 ML SOLUTION PO (11:24)
--- NOTE | 2025-01-05 11:24 | SWNOTE1 ---
JIMI stopped by pt's room and spoke with pt and his sister, Diandra. SW spoke with them about rehab and the likely recommendation of SNF by therapy. JIMI let Diandra know that pt did want to return to [facility]. She stated she wants him closer to [place] and she had too many issues there. She asked about [facility], but [facility] does not take his insurance, nor do they take Medicaid snf. SW did let her know there was a facility in [place]. She did ask about any other facilities in [place]. SW let her know there is [place] [facility]. JIMI did provide Diandra with a list from Medicare.gov with star ratings to review. She would like SW to look in to [facility]. Diandra then spoke with pt and let him know they want him closer to home and she had issues with [facility]. Pt is in agreement with his sister and is alright with referral being sent to [facility]. SW called [facility] and was transferred to admissions line, no answer. JIMI reached out to Jeremy at [facility] to see if they would review referral. Waiting to hear back. Referral sent to Jeremy at [facility] . Referral included face sheet, ED note, H&P, provider notes, case management report, nursing notes, diagnostic imaging, med list, and PT/OT notes.
--- NOTE | 2025-01-05 11:32 | CM.NOTE ---
2nd Notice of Important Message From Medicare discussed with pt, pt denies questions or concerns.
--- NOTE | 2025-01-05 12:27 | W.ACP ---
Advance Care Planning Advance Care Planning Discussion Advance care planning discussion participants: patient and legally authorized Health Care Proxy Advance care planning discussion summary: Advance care planning and goals of care discussion Conversation took place with patient who is coherent and able to understand conversation related to his health including but not limited to risk, benefit, options, alternatives. Patient is able to recite. Patient is able to ask and answer questions appropriately. Conversation took place with his sister Magdalena who is a designated POA. Conversation lasted for about 30 minutes I gave both information about his disease, prognosis, expectation and trajectory. We discussed his CODE STATUS. I explained to Moose in layman's terms the difference between full code, CCA and CC. I explained in basic terms the process of CPR including chest compressions, shocks, intubation life support. Patient understood conversation very well. Patient stated in basic terms that he would like to receive all needed medical care to get him better and keep him alive except that if his heart stops beating or he cannot breathe on his own he would not want to receive any compression, resuscitative effort or placed on life support. His sister is in agreement to follow his wishes His wishes are consistent with DNR CCA status. I will change CODE STATUS accordingly
--- NOTE | 2025-01-05 13:37 | SWNOTE1 ---
Alexa from [facility] did let SW know they can accept, but they are trying to verify his insurance and requested that SW refax face sheet. Dr. Nelson did message SW to assist pt's sister in applying for Medicaid. JIMI did discuss this with pt's sister on Wednesday and today. Pt's sister again told SW that pt does qualify for Medicaid. JIMI did recommend starting the application process. JIMI did ask Alexa if [facility] can assist pt's sister as well. Alexa did email JIMI back and let SW know that Della is out today, but will return Wednesday. JIMI will request that Della call pt's sister Wednesday to start the Medicaid process for fdc placement.
[2025-01-05] MEDS: 0.9 % SODIUM CHLORIDE 250 ML 10 ML IV (14:00)
--- NOTE | 2025-01-05 14:11 | SWNOTE1 ---
Alexa from [facility] is still having issues with pt's insurance. It is showing he does not have [employer] [facility]. JIMI could see that we ran it and it said [employer] dual plan. JIMI sent Alexa what the hospital ran. JIMI also sent Alexa PT/OT notes as well.
--- NOTE | 2025-01-05 15:13 | SWNOTE1 ---
SW spoke with Alexa and she is still having issues with insurance. JIMI called pt's sister, Diandra. Diandra provided SW with group ID number, which was correct on face sheet. She stated it is [employer] dual plan. Diandra also stated that her brother in [place] works with someone from [facility] and he is talking with someoen from [facility] in [place]. They are thinking they may like that facility. SW did let her know that if we start a precert to [facility] and then Wednesday they would like [facility], SW would have to cancel everything. She stated she would stop discharge and she wants to make sure he goes to facility they want him to go to. SW to call [facility]. JIMI called and spoke with Rosi in admission and she is in agreement to look over referral and she did speak with pt's александр. Referral sent to [facility]. Referral included face sheet, ED note, H&P, provider notes, case management report, wound consult, nursing notes, diagnostic imaging, med list, and PT/OT notes.
--- NOTE | 2025-01-05 15:57 | SWNOTE1 ---
JIMI faxed DNR paperwork to Rosi at [facility].
--- NOTE | 2025-01-05 16:01 | SWNOTE1 ---
SW received email from Rosi at [facility] and they accepted and will start precert. JIMI called Diandra and updated her that they accepted and will start precert through insurance for rehab and then SW will touch base iwth her on Wednesday. Pt's sister is appreciative.
[2025-01-05] MEDS: TRAZODONE HCL 50 MG TABLET PO (22:56)
[2025-01-05] MEDS: ZONISAMIDE 25 MG CAPSULE 50 MG PO (22:56)
[2025-01-06] VITALS (22 sets, daily range): BP systolic 139–161; BP diastolic 76–84; PULSE 68–113; TEMP 36.3–37.2; O2SAT 83–95
[2025-01-06] MEDS: PIPERACILLIN SODIUM/TAZOBACTAM 3.375 GM in 0.9 % SODIUM CHLORIDE 50 ML IV ×3 (04:02→22:20)
[2025-01-06] MEDS: ZONISAMIDE 100 MG CAPSULE PO (06:06)
[2025-01-06 06:41] LABS: Hematocrit 30.9 % (42.0-54.0); Hemoglobin 10.4 g/dL (14.0-18.0); Mean Corpuscular HGB Conc 33.7 g/dL (29.9-35.2); Mean Corpuscular Hemoglobin 32.4 pg (25.9-34.0); Mean Corpuscular Volume 96.3 fL (80.0-94.0); Platelet Count 83 10^3/uL (150-450); Red Blood Count 3.21 10^6/uL (4.70-6.10); White Blood Count 10.4 10^3/uL (4.0-11.0)
[2025-01-06 06:47] LABS: Alanine Aminotransferase 388 U/L (16-63); Albumin Globulin Ratio 0.7; Albumin Level 2.7 g/dL (3.4-5.0); Alkaline Phosphatase 135 U/L (46-116); Anion Gap 10.5; Aspartate Amino Transferase 132 U/L (15-37); Blood Urea Nitrogen 24.0 mg/dL (7.0-18.0); Calcium 8.3 mg/dL (8.5-10.1); Carbon Dioxide 21.5 mmol/L (21.0-32.0); Chloride 106 mmol/L (98-107); Estimated GFR (African America >60 (>=60 mL/min/1.73m^2); Estimated GFR (Non-African Ame >60 (>=60 mL/min/1.73m^2); Globulin 3.8 g/dL; Glucose 109 mg/dL (74-106); Potassium 4.0 mmol/L (3.5-5.1); Sodium 134 mmol/L (136-145); Total Protein 6.5 g/dL (6.4-8.2)
[2025-01-06] MEDS: AMLODIPINE BESYLATE 5 MG TABLET 2.5 MG PO (09:02)
[2025-01-06] MEDS: FUROSEMIDE 20 MG/2 ML VIAL IVP ×2 (09:02→22:19)
[2025-01-06] MEDS: TAMSULOSIN HCL 0.4 MG CAPSULE PO (09:02)
--- NOTE | 2025-01-06 09:57 | PM.PN ---
Progress Note: Subjective Subjective Interval history: Uneventful night. Patient is awake this morning. More awake. Able to engage. Able to throw some jokes. Able to follow commands patient had 2 bowel movement yesterday. No abdominal pain. No nausea or vomiting Exam Narrative Exam Narrative: Patient is lying in bed. No distress. Awake. Able to follow commands. Left arm is weak which is old. Cachectic and frail. Chest exam revealed bibasilar rhonchi. Abdomen soft, nontender. Lower extremities no edema. Constitutional Vital Signs, click to edit/add: Last Vital Signs Temp 98.2 F 01/06/25 08:08 Pulse 82 01/06/25 08:08 Resp 16 01/06/25 08:08 BP 150/80 H 01/06/25 09:02 Pulse Ox 94 L 01/06/25 08:08 O2 Del Method Room Air 01/06/25 08:08 O2 Flow Rate 2 01/03/25 16:03 Progress Note: Objective Labs Labs: Short CBC 01/06/25 Range/Units 05:48 WBC 10.4 (4.0-11.0) 10^3/uL Hgb 10.4 L (14.0-18.0) g/dL Hct 30.9 L (42.0-54.0) % Plt Count 83 L (150-450) 10^3/uL BMP 01/06/25 05:48 Sodium 134 L Potassium 4.0 Chloride 106 Carbon Dioxide 21.5 BUN 24.0 H Creatinine 0.98 Glucose 109 H Calcium 8.3 L Liver Function 01/06/25 Range/Units 05:48 Total Bilirubin 0.5 (0.2-1.0) mg/dL AST 132 H (15-37) U/L ALT 388 H (16-63) U/L Alkaline Phosphatase 135 H (46-116) U/L Albumin 2.7 L (3.4-5.0) g/dL Progress Note: A&P Assessment and Plan (1) Altered mental status: Plan Sepsis manifested by elevated temperature, tachycardia, elevated blood pressure and elevated lactic acid. Encephalopathy and thrombocytopenia. Patient also had developed elevated LFTs. Sepsis parameters improved no longer tachycardic or hypotensive. White count is trending down. Lactic acid is back to normal. Sepsis protocol was followed. CAT scan of the chest and abdomen came back positive for basilar pneumonia. I suspect that the patient had aspirated when he developed altered mentation at home. Urine is coming back positive for E. coli more than 100,000 Continue intravenous Zosyn for both pneumonia and UTI. Blood cultures is negative Basilar aspiration pneumonia Continue Zosyn Bacteriuria, UTI Urine cultures positive for E. coli. Pansensitive Continue Zosyn aspiration pneumonia and UTI. Altered mental status, encephalopathy. Could be related to early sepsis. Not sure if patient was overdosing on his antiseizure medication at home as his sister reported that there was bottles and pills scattered all over the floor. Toxicology screen is positive for benzo. Is on Xanax at home CAT scan of the head does not show acute intracranial process. No focal deficit. Patient is known to have recent stroke with hemorrhagic transformation. Avoid antiplatelets and anticoagulation at this time. Patient is back to baseline state. No strong indication for repeat MRI imaging Acute renal failure, CT scan does not show any obstructive uropathy but positive for renal calculi that could explain his hematuria. LOVELY had resolved. Acute elevated liver enzymes. Trending in a positive direction Acute thrombocytopenia. Trending in a positive direction These are likely related to sepsis Avoid antiplatelets or anticoagulation given thrombocytopenia and previous history of hemorrhagic cerebral stroke All improving Hypokalemia, hypophosphatemia, hypomagnesemia Potassium, magnesium and phosphate supplementation. Repleted. Constipation, fecal impaction seen on CT. No bowel movement for several days Start patient on laxatives and stimulants Patient had at least 2 bowel movement yesterday. History of seizure Is a preadmission antiepileptics have been resumed. Multiple abnormalities seen on CT imaging of the abdomen Patient does not have any tenderness in the abdomen. Other incidental finding would need to be addressed electively as listed below. Cachexia, frailty, muscle wasting, sarcopenia, moderate protein calorie malnutrition Unknown cause or etiology. Patient may need the cachexia and weight loss investigation including workup to rule out underlying malignancy Meanwhile I would start patient on oral protein supplementation if his mental status improves over the next 24 to 48 hours. Anemia, no evidence of acute blood loss. Patient will likely require to have anemia workup to be done in the outpatient setting to be handled by PCP in collaboration with other needed outpatient providers. This may include but not limited to EGD, colonoscopy, referral to see hematology and other needed age-appropriate cancer screening. 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 Patient is not on anticoagulation or antiplatelets at home prior to admission PT OT eval and treatment. Patient may need additional session of short-term skilled care. Pending acceptance and pre-CERT approval by his insurance company. Chronic, subacute medical conditions not listed above, abnormal labs and imaging, incidental findings seen on labs and or imaging. These would need to be addressed. Could be addressed later on or in the outpatient setting by PCP collaboration with other needed outpatient providers when time and condition are appropriate. Urinary Catheter Management Urinary Catheter Management Coude: Cath placed during this visit: yes Urethral indwelling: No Insertion date: 01/03/25 Insertion time: 06:20
--- NOTE | 2025-01-06 11:25 | PT.DAILY ---
Physical Therapy Daily Note PT Daily Note/Assess Start: 01/05/25 13:07 Freq: Status: Active Protocol: Document 01/06/25 11:15 [id number] (Rec: 01/06/25 11:25 [id number] No Response) Physical Therapy Daily Note/Assessment Time In/Time Out Time In 09:22 Time Out 09:36 Pain In Pain Level 0 Pain Out Pain Level 0 Subjective Subjective Patient received supine in bed and agreeable to participate with PT and to sit in chair bedside after walking. Therapeutic Activity Time Therapeutic Activity 14 Minutes (minutes) Therapeutic Activity 1 Units Therapeutic Activity Treatment Bed Mobility Ability Contact Guard Assist,Minimum Assist Chair Transfer Contact Guard Assist Ability Therapeutic Activity Bed mobility: supine to R SL to sit EOB is CGA to MIN A Comments +1. Patient performed 5x STS w/ use of hands pushing of bed and 2WW w/ CGA +1. Verbal cues to stand completely upright and to use hands towards bed to reach when sitting for safety. Patient stood at EOB without UE support 20 seconds before posterior LOB and MIN A +1 to correct. Patient ambulated ~105' x 1 w/ 2WW w/ gait belt w/ CGA +1. No LOB during ambulation observed. Patients gait quality is decreased secondary to L foot drop. Patient seated in chair at bedside, CBWR and all needs met. Total Physical Therapy Time Total Therapy 14 Minutes Total Physical 1 Therapy Units Summary Daily Note Summary Patient requires decreased assist with bed mobility this date. Patient is able to perform 5XSTS x 5 reps, does require assistance to complete safely. Patient demonstrates postural instability in a static stance increasing risk for falls. Ambulation distances improved, quality of gait diminished due to L foot drop . Patient may benefit from the use of an AFO to the L foot to improve quality of gait and decrease risk for falls. Patient would benefit from care home to address functional deficits for return to PLOF.
[2025-01-06] MEDS: ZONISAMIDE 25 MG CAPSULE 100 MG PO ×2 (14:02→22:21)
[2025-01-06] MEDS: TRAZODONE HCL 50 MG TABLET PO (22:21)
[2025-01-06] MEDS: ZONISAMIDE 25 MG CAPSULE 50 MG PO (22:21)
[2025-01-07] VITALS (20 sets, daily range): BP systolic 144–156; BP diastolic 68–82; PULSE 64–91; TEMP 36.7–36.9; O2SAT 92–94
[2025-01-07] MEDS: ZONISAMIDE 25 MG CAPSULE 100 MG PO ×3 (05:58→21:27)
[2025-01-07] MEDS: PIPERACILLIN SODIUM/TAZOBACTAM 3.375 GM in 0.9 % SODIUM CHLORIDE 50 ML IV (05:58)
--- NOTE | 2025-01-07 09:00 | PM.PN ---
Progress Note: Subjective Subjective Interval history: Uneventful night. No chest pain. No abdominal pain. No seizure. Exam Narrative Exam Narrative: Patient is lying in bed. No distress. Awake. Able to follow commands. Left arm is weak which is old. Cachectic and frail. Chest exam revealed bibasilar rhonchi. Abdomen soft, nontender. Lower extremities no edema. Constitutional Vital Signs, click to edit/add: Last Vital Signs Temp 98.4 F 01/07/25 07:58 Pulse 76 01/07/25 08:13 Resp 13 01/07/25 07:58 BP 153/76 H 01/07/25 07:58 Pulse Ox 94 L 01/07/25 07:58 O2 Del Method Room Air 01/07/25 07:58 O2 Flow Rate 2 01/03/25 16:03 Progress Note: A&P Assessment and Plan (1) Altered mental status: Plan Sepsis manifested by elevated temperature, tachycardia, elevated blood pressure and elevated lactic acid. Encephalopathy and thrombocytopenia. Patient also had developed elevated LFTs. Sepsis parameters improved no longer tachycardic or hypotensive. White count is trending down. Lactic acid is back to normal. Sepsis protocol was followed. CAT scan of the chest and abdomen came back positive for basilar pneumonia. I suspect that the patient had aspirated when he developed altered mentation at home. Urine is coming back positive for E. coli more than 100,000 Continue intravenous Zosyn for both pneumonia and UTI. Blood cultures is negative Basilar aspiration pneumonia Switching Zosyn to Augmentin. Bacteriuria, UTI Urine cultures positive for E. coli. Pansensitive Switching Zosyn to Augmentin. Altered mental status, encephalopathy. Could be related to early sepsis. Not sure if patient was overdosing on his antiseizure medication at home as his sister reported that there was bottles and pills scattered all over the floor. Toxicology screen is positive for benzo. Is on Xanax at home CAT scan of the head does not show acute intracranial process. No focal deficit. Patient is known to have recent stroke with hemorrhagic transformation. Avoid antiplatelets and anticoagulation at this time. Patient is back to baseline state. No strong indication for repeat MRI imaging Altered mental status has resolved Acute renal failure, CT scan does not show any obstructive uropathy but positive for renal calculi that could explain his hematuria. LOVELY had resolved. Acute elevated liver enzymes. Trending in a positive direction Acute thrombocytopenia. Trending in a positive direction These are likely related to sepsis Avoid antiplatelets or anticoagulation given thrombocytopenia and previous history of hemorrhagic cerebral stroke All resolved Hypokalemia, hypophosphatemia, hypomagnesemia Potassium, magnesium and phosphate supplementation. Repleted. Constipation, fecal impaction seen on CT. No bowel movement for several days Start patient on laxatives and stimulants Patient had at least 2 bowel movement yesterday. History of seizure Is a preadmission antiepileptics have been resumed. Multiple abnormalities seen on CT imaging of the abdomen Patient does not have any tenderness in the abdomen. Other incidental finding would need to be addressed electively as listed below. Cachexia, frailty, muscle wasting, sarcopenia, moderate protein calorie malnutrition Unknown cause or etiology. Patient may need the cachexia and weight loss investigation including workup to rule out underlying malignancy Meanwhile I would start patient on oral protein supplementation if his mental status improves over the next 24 to 48 hours. Anemia, no evidence of acute blood loss. Patient will likely require to have anemia workup to be done in the outpatient setting to be handled by PCP in collaboration with other needed outpatient providers. This may include but not limited to EGD, colonoscopy, referral to see hematology and other needed age-appropriate cancer screening. 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 Patient is not on anticoagulation or antiplatelets at home prior to admission PT OT eval and treatment. Patient may need additional session of short-term skilled care. Pending acceptance and pre-CERT approval by his insurance company. Chronic, subacute medical conditions not listed above, abnormal labs and imaging, incidental findings seen on labs and or imaging. These would need to be addressed. Could be addressed later on or in the outpatient setting by PCP collaboration with other needed outpatient providers when time and condition are appropriate. Urinary Catheter Management Urinary Catheter Management Coude: Cath placed during this visit: yes Urethral indwelling: No Insertion date: 01/03/25 Insertion time: 06:20
[2025-01-07] MEDS: AMLODIPINE BESYLATE 5 MG TABLET PO (09:38)
[2025-01-07] MEDS: TAMSULOSIN HCL 0.4 MG CAPSULE PO (09:38)
[2025-01-07] MEDS: TRAZODONE HCL 50 MG TABLET PO (21:26)
[2025-01-07] MEDS: AMOXICILLIN/POT CLAV 875-125 MG TABLET 1 TAB PO (21:26)
[2025-01-07] MEDS: ZONISAMIDE 25 MG CAPSULE 50 MG PO (21:27)
[2025-01-08] VITALS (13 sets, daily range): BP systolic 135–154; BP diastolic 69–75; PULSE 75–98; TEMP 36.3–36.9; O2SAT 90–95
[2025-01-08] MEDS: ZONISAMIDE 25 MG CAPSULE 100 MG PO ×2 (05:21→14:42)
[2025-01-08 05:33] LABS: Hematocrit 33.4 % (42.0-54.0); Hemoglobin 11.9 g/dL (14.0-18.0); Mean Corpuscular HGB Conc 35.6 g/dL (29.9-35.2); Mean Corpuscular Hemoglobin 34.9 pg (25.9-34.0); Mean Corpuscular Volume 97.9 fL (80.0-94.0); Platelet Count 97 10^3/uL (150-450); Red Blood Count 3.41 10^6/uL (4.70-6.10); White Blood Count 5.6 10^3/uL (4.0-11.0)
[2025-01-08 05:56] LABS: Alanine Aminotransferase 240 U/L (16-63); Albumin Globulin Ratio 0.8; Albumin Level 3.0 g/dL (3.4-5.0); Alkaline Phosphatase 140 U/L (46-116); Anion Gap 12.8; Aspartate Amino Transferase 54 U/L (15-37); Blood Urea Nitrogen 30.0 mg/dL (7.0-18.0); Calcium 9.0 mg/dL (8.5-10.1); Carbon Dioxide 24.3 mmol/L (21.0-32.0); Chloride 108 mmol/L (98-107); Estimated GFR (African America >60 (>=60 mL/min/1.73m^2); Estimated GFR (Non-African Ame >60 (>=60 mL/min/1.73m^2); Globulin 4.0 g/dL; Glucose 121 mg/dL (74-106); Potassium 4.1 mmol/L (3.5-5.1); Sodium 141 mmol/L (136-145); Total Protein 7.0 g/dL (6.4-8.2)
--- NOTE | 2025-01-08 08:15 | CM.NOTE ---
Rounds made with Dr. Nelson, pt will discharge to [facility] for skilled therapy when medically stable. Discussed with pt plan of care.
[2025-01-08] MEDS: AMOXICILLIN/POT CLAV 875-125 MG TABLET 1 TAB PO (08:43)
[2025-01-08] MEDS: AMLODIPINE BESYLATE 5 MG TABLET PO (08:43)
[2025-01-08] MEDS: TAMSULOSIN HCL 0.4 MG CAPSULE PO (08:43)
[2025-01-08] MEDS: SENNOSIDES/DOCUSATE SODIUM 1 TAB TABLET 2 TAB PO (08:43)
--- NOTE | 2025-01-08 08:50 | P.DS_ITS ---
DS: Providers Provider Date of admission: 01/03/25 12:25 Primary care physician: CHANTAL DIAZ Consults: 01/05/25 Occupational Therapy Eval and Treat Routine Reason for consultation: weakness Physical Therapy Eval and Treat Routine Reason for consultation: weakness DS: Diagnosis Discharge Diagnosis (1) Altered mental status: Plan As listed above, below and others that are not listed DS: Summary Hospital Course Hospital Course: Mr. Plascencia is a 69-year-old gentleman who came in with a change in mental status. He was found to have the following: Sepsis secondary to pneumonia and UTI manifested by elevated temperature, tachycardia, elevated blood pressure and elevated lactic acid. Encephalopathy and thrombocytopenia. Patient also had developed elevated LFTs. Sepsis parameters improved no longer tachycardic or hypotensive. White count is trending down. Lactic acid is back to normal. Sepsis protocol was followed. CAT scan of the chest and abdomen came back positive for basilar pneumonia. I suspect that the patient had aspirated when he developed altered mentation at home. Urine is coming back positive for E. coli more than 100,000 Continue intravenous Zosyn for both pneumonia and UTI. Blood cultures is negative Basilar aspiration pneumonia Switching Zosyn to Augmentin. Bacteriuria, UTI Urine cultures positive for E. coli. Pansensitive Switching Zosyn to Augmentin. Altered mental status, encephalopathy. Could be related to early sepsis. Not sure if patient was overdosing on his antiseizure medication at home as his sister reported that there was bottles and pills scattered all over the floor. Toxicology screen is positive for benzo. Is on Xanax at home CAT scan of the head does not show acute intracranial process. No focal deficit. Patient is known to have recent stroke with hemorrhagic transformation. Avoid antiplatelets and anticoagulation at this time. Patient is back to baseline state. No strong indication for repeat MRI imaging Altered mental status has resolved Acute renal failure, CT scan does not show any obstructive uropathy but positive for renal calculi that could explain his hematuria. LOVELY had resolved. Acute elevated liver enzymes. Trending in a positive direction Acute thrombocytopenia. Trending in a positive direction These are likely related to sepsis Avoid antiplatelets or anticoagulation given thrombocytopenia and previous history of hemorrhagic cerebral stroke All resolved Hypokalemia, hypophosphatemia, hypomagnesemia Potassium, magnesium and phosphate supplementation. Repleted. Constipation, fecal impaction seen on CT. No bowel movement for several days Start patient on laxatives and stimulants Patient had at least 2 bowel movement yesterday. Avascular necrosis of the left hip seen on CT Arrange for patient to have an outpatient follow-up with her orthopedic team. History of seizure Is a preadmission antiepileptics have been resumed. Patient is to follow-up with his neurologist Theresa Sanchez. Multiple abnormalities seen on CT imaging of the abdomen Patient does not have any tenderness in the abdomen. Other incidental finding would need to be addressed electively as listed below. Cachexia, frailty, muscle wasting, sarcopenia, moderate protein calorie malnutrition Unknown cause or etiology. Patient may need the cachexia and weight loss investigation including workup to rule out underlying malignancy Meanwhile I would start patient on oral protein supplementation if his mental status improves over the next 24 to 48 hours. Anemia, no evidence of acute blood loss. Patient will likely require to have anemia workup to be done in the outpatient setting to be handled by PCP in collaboration with other needed outpatient providers. This may include but not limited to EGD, colonoscopy, referral to see hematology and other needed age-appropriate cancer screening. 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 Patient is not on anticoagulation or antiplatelets at home prior to admission PT OT eval and treatment. Patient may need additional session of short-term skilled care. Pending acceptance and pre-CERT approval by his insurance company. Chronic, subacute medical conditions not listed above, abnormal labs and imaging, incidental findings seen on labs and or imaging. These would need to be addressed. Could be addressed later on or in the outpatient setting by PCP collaboration with other needed outpatient providers when time and condition are appropriate. Patient has multiple complex medical issues as listed above and others that are not listed. All appear to be stable. I do not have any clear or strong clinical justification to extend inpatient hospitalization. Patient however will require close and frequent monitoring as well as additional work-up, investigation and therapeutic intervention that could take place from this point on post discharge. That is to prevent relapse, decompensation, rehospitalization and other medical implications. Discharge medications as listed are not final or set in stone. Primary care doctor and other out patient providers will need to titrate and adjust me dications as soon as the first post discharge visit based on clinical progression, vitals signs, volume status and other related organs function. I instructed patient to ask her primary care doctor to obtain [facility] record entirely to address abnormalities seen on labs and imaging that I have and have not addressed during this hospitalization, follow-up on pending blood work, imaging and pathology is if available and to follow-up on needed medical care in the outpatient setting. Time Spent with Patient Time attestation: Total time spent providing and/or coordinating discharge services: Time spent: greater than 30 minutes Exam Narrative Exam Narrative: Patient is lying in bed. No distress. Awake. Able to follow commands. Left arm is weak which is old. Cachectic and frail. Chest exam revealed bibasilar rhonchi. Abdomen soft, nontender. Lower extremities no edema. Constitutional Vital Signs, click to edit/add: Last Vital Signs Temp 97.7 F 01/08/25 07:12 Pulse 78 01/08/25 08:00 Resp 18 01/08/25 08:00 BP 146/71 H 01/08/25 07:12 Pulse Ox 92 L 01/08/25 07:12 O2 Del Method Room Air 01/08/25 07:12 O2 Flow Rate 2 01/03/25 16:03 DS: Data Data Completed and Pending Labs on day of discharge: Labs from last 24 hours 01/08/25 05:21 WBC 5.6 RBC 3.41 L Hgb 11.9 L Hct 33.4 L MCV 97.9 H MCH 34.9 H MCHC 35.6 H RDW 14.0 Plt Count 97 L MPV 11.1 Sodium 141 Potassium 4.1 Chloride 108 H Carbon Dioxide 24.3 Anion Gap 12.8 BUN 30.0 H Creatinine 0.93 Est GFR ( Amer) >60 Est GFR (Non-Af Amer) >60 BUN/Creatinine Ratio 32.3 Glucose 121 H Calcium 9.0 Total Bilirubin 0.3 Direct Bilirubin 0.1 AST 54 H ALT 240 H Alkaline Phosphatase 140 H Total Protein 7.0 Albumin 3.0 L Globulin 4.0 Albumin/Globulin Ratio 0.8 Preliminary micro results at discharge 01/02/25 19:18 Blood Culture Result 2 - Preliminary Blood NO GROWTH AT 36-48 HOURS. FINAL TO FOLLOW. 01/02/25 19:04 Blood Culture Result 1 - Preliminary Blood NO GROWTH AT 36-48 HOURS. FINAL TO FOLLOW. Discharge Plan Discharge Disposition: Xfer SNF Discharge Medications: New amlodipine 5 mg Tablet 5 mg PO QD Qty: 0 0RF amoxicillin-pot clavulanate 875-125 mg Tablet 1 tab PO BID 10 Days Qty: 20 0RF sennosides-docusate sodium 8.6-50 mg Tablet 1 tab-cap PO BID Qty: 60 0RF metoprolol succinate 25 mg Tablet Extended Release 24 Hr 25 mg PO QD Qty: 0 0RF Continued zonisamide 100 mg capsule 100 mg PO BIDWM felbamate 600 mg tablet 1,200 mg PO QID zonisamide 50 mg capsule 150 mg PO .qhs tamsulosin [Flomax] 0.4 mg capsule 0.4 mg PO DAILY trazodone 50 mg tablet 50 mg PO .qhs clonazepam 0.5 mg tablet 0.5 mg PO BID PRN (Reason: anxiety) Qty: 12 0RF Discontinued atorvastatin 10 mg tablet 10 mg PO .QHS acetaminophen [Mapap (acetaminophen)] 500 mg capsule 1,000 mg PO TID Print Language: Lithuanian Activity Restrictions/Additional Instructions: I may not have addressed or treated all of your medical illnesses or the abnormal blood work or imaging studies during this hospitalization. Please ask your primary care provider to obtain [facility] records entirely to follow up on all of the abnormal physical, laboratory, and imaging findings that I have not addressed. Please return back to the emergency room or seek medical attention if your symptoms worsen or return. Discharging you from [facility] does not mean that your medical care ends here and now. You may still need additional monitoring, work up, investigation, and treatment plan to be handled from this point on by out patient providers including your primary care provider and specialists. For [facility] providers Fall risk Seizure precaution CBC and CMP weekly for 3 weeks Resume Lipitor 20 mg daily if his liver enzymes returned back to normal Please make sure that patient follows up with neurology and Ortho For any medication question, please contact your retail pharmacist or your primary care provider. Thank you. Forms: Portal Instructions Referrals: Dionisio Sanchez [Other] CHANTAL DIAZ [Primary Care Provider, Family Practice] Ethan Heller DO [Physician, Orthopedics] Referral Note: For avascular necrosis of the hip He can see him at the [facility] office
[2025-01-08] MEDS: METOPROLOL SUCCINATE 25 MG TAB.ER.24H PO (08:53)
--- NOTE | 2025-01-08 09:35 | SWNOTE1 ---
Pt is medically stable for discharge today, but we are waiting on precert to [facility]. JIMI called and left a message for Rosi in admissions and emailed her as well to see if precert came through. JIMI faxed updates to Rosi. Updates included physician notes from the weekend, dc summary, most recent labs and vitals, and PT note from 01/06.
--- NOTE | 2025-01-08 10:28 | SWNOTE1 ---
JIMI called [facility] to check on precert to SNF. JIMI spoke to Alen. Alen stated that SW will have to call [facility] as they are the third constitution party that does the precerts to SNF. Alen provided JIMI with phone number.
--- NOTE | 2025-01-08 10:36 | CM.NOTE ---
2nd Important Message From Medicare discussed with pt, pt denies any questions or concerns.
--- NOTE | 2025-01-08 10:38 | SWNOTE1 ---
JIMI called [facility] and they do not see it in there system, but stated some facilities upload it to [facility] and JIMI would have to call [facility]. JIMI advised that JIMI already tried that. At this time [facility] is not able to assist. JIMI did receive email back from Rosi at [facility] and she stated the precert is still pending.
--- NOTE | 2025-01-08 10:40 | CM.NOTE ---
Dr. Nelson aware of final urine culture results with susceptibility.
--- NOTE | 2025-01-08 13:19 | SWNOTE1 ---
JIMI spoke to pt's sister and her in [facility]. JIMI let her know that SW is waiting to hear back from the insurance to see if they approved him to go. Pt's sister did ask if he will stay here until then, JIMI reassured her that he will be here until we hear back from insurance company. JIMI advised it could be today or it could be tomorrow. Pt's sister also had a copy of his HCPOA paperwork. JIMI made a copy for the chart. No further questions from patient or family at this time. JIMI faxed OT note, DNR, dc med rec, and dc summary to Rosi at [facility]. JIMI let her know that pt's sister is on her way to visit the facility.
--- NOTE | 2025-01-08 14:17 | SWNOTE1 ---
JIMI received an email from Rosi at [facility] and she did get approval. She will need PASRR completed and transport after 4:00. JIMI faxed over dc med rec, dc summary, and front of CRF. JIMI completed PASRR online and sent the results to Rosi. JIMI called and set up [facility] for 4:30. JIMI notified Diandra (pt's sister), pt's nurse, pt, and Rosi at [facility] of time. JIMI took packet to the floor and placed CRF in nurse mail slot to complete. Pt is going to [facility] skilled.
== END 2025-01-08 16:36 | DRG 871 ==
LOC: ER 21:23 → MS 01-03 13:24
PROVIDERS: Admitting Provider Internal Medicine; Emergency Provider Emergency Medicine; PCP Family Medicine; Visit Provider Internal Medicine
DX: A41.9 Sepsis, unspecified organism (principal); J69.0 Pneumonitis due to inhalation of food and vomit; E87.20 Acidosis, unspecified; N39.0 Urinary tract infection, site not specified; E44.0 Moderate protein-calorie malnutrition; N17.9 Acute kidney failure, unspecified; G93.40 Encephalopathy, unspecified; I95.9 Hypotension, unspecified; E87.6 Hypokalemia; E83.39 Other disorders of phosphorus metabolism; E83.42 Hypomagnesemia; D64.9 Anemia, unspecified; N20.0 Calculus of kidney; D69.6 Thrombocytopenia, unspecified; B96.20 Unspecified Escherichia coli [E. coli] as the cause of diseases classified elsewhere; K56.41 Fecal impaction; R74.8 Abnormal levels of other serum enzymes; Z86.73 Personal history of transient ischemic attack (TIA), and cerebral infarction without residual deficits; R31.29 Other microscopic hematuria; Z79.899 Other long term (current) drug therapy
CPT/HCPCS: 36415; 51702; 70450; 71045; 71250; 74176; 80048; 80053; 80076; 80307; 81001; 83605; 83735; 84100; 84484; 85025; 85027; 87040; 87086; 87088; 87186; 87804; 87811; 93005; 96361; 96374; 97110; 97163; 97165; 97530; 97535; 99285; J0696; J1938; J2405; J2543; J3373; J3475